=== PATIENT | male | born 1955 | race African-American/Black ===

== ENCOUNTER 2023-11-28 07:19 | Inpatient (IN) | payer MEDICARE, MEDICAID ==
[~2023-11-28] VITALS: Ht 162.6 cm; Wt 75.0 kg
[2023-11-28] MEDS: ALBUTEROL SULF 2.5 MG/0.5ML(0.5%) NEB SOLN NEB ONE (08:11)
[2023-11-28] MEDS: IPRATROPIUM BROM 0.5 MG/2.5ML INH SOL NEB ONE (08:11)
[2023-11-28 08:23] LABS: Basophils # (auto) 0.1 10 ^3/uL (0-0.2); Basophils % (auto) 0.7 % (0.0-2.0); Eosinophils # (auto) 0.2 10 ^3/uL (0-0.8); Eosinophils % (auto) 1.5 % (0.0-7.0); Hematocrit 47.7 % (41.0-53.0); Hemoglobin 15.4 g/dL (13.5-17.5); Lymphocytes # (auto) 1.8 10 ^3/uL (0.4-5.4); Lymphocytes % (auto) 15.1 % (10.0-50.0); Mean Corpuscular Hemoglobin 27.4 pg (28.0-32.0); Mean Corpuscular Hgb Conc. 32.3 g/dL (32.0-36.0); Mean Corpuscular Volume 84.7 fL (80.0-100.0); Monocytes # (auto) 0.9 10 ^3/uL (0-1.3); Monocytes % (auto) 7.6 % (0.0-12.0); Neutrophils # (auto) 9.1 10 ^3/uL (1.6-8.6); Neutrophils % (auto) 75.1 % (37.0-80.0); Nucleated Red Blood Cells % 0.3 %; Red Blood Cells 5.63 10^6/uL (4.5-5.90); Red Cell Distribution Width 15.9 % (11.8-14.3); White Blood Cell 12.1 10^3/uL (4.4-10.8)
[2023-11-28 08:32] LABS: Alanine Aminotransferase 44 U/L (7-40); Albumin 4.6 g/dL (3.2-4.8); Alkaline Phosphatase 124 U/L (46-116); Anion Gap 8 (5-15); Aspartate Aminotransferase 27 U/L (13-40); BUN/Creatinine Ratio 12.3 (10.0-20.0); Bilirubin, Total 0.5 mg/dL (0.2-1.0); Blood Urea Nitrogen 13 mg/dL (9-23); Calcium 10.1 mg/dL (8.5-10.1); Carbon Dioxide 26 mmol/L (20-30); Chloride 110 mmol/L (98-107); Glucose 85 mg/dL (74-106); Potassium 4.7 mmol/L (3.5-5.1); Sodium 144 mmol/L (136-145); Total Protein 6.5 g/dL (5.7-8.2)
[2023-11-28] MEDS: methylPREDNISolone SOD SUCC 125 MG/2 ML VL IV ONE (08:33)
[2023-11-28] MEDS: cefTRIAXone 1GM/50ML D5W 50 ML IV ONE (09:34)
[2023-11-28 10:45] VITALS: BP 156/78; PULSE 73; RESP 20; TEMP 98.1; O2SAT 98
[2023-11-28] MEDS: AZITHROMYCIN 500MG/ 250ML 250 ML IV ONE (10:45)
[2023-11-28] MEDS ORDERED: ACETAMINOPHEN 325 MG TAB PO PRN (10:45)
[2023-11-28] MEDS ORDERED: ALBUTEROL SULF 2.5 MG/0.5ML(0.5%) NEB SOLN NEB PRN (10:45)
[2023-11-28] MEDS ORDERED: AZIT500T66 PO (10:47)
[2023-11-28] MEDS ORDERED: DOXY100T2 PO (10:47)
[2023-11-28] MEDS ORDERED: APIX5TAB PO (10:47)
[2023-11-28] MEDS ORDERED: LEVO500T91 PO (10:47)
[2023-11-28] MEDS ORDERED: MEMA1TAB5 PO (10:47)
[2023-11-28] MEDS ORDERED: METH4PAK3 PO (10:47)
[2023-11-28] MEDS ORDERED: ALBU108A5 INH (10:47)
[2023-11-28] MEDS ORDERED: NICO21DI37 TOP (10:47)
[2023-11-28] MEDS ORDERED: FLUT1AER3 PO (10:47)
[2023-11-28] MEDS ORDERED: PRED20TA2 PO (10:47)
[2023-11-28] MEDS ORDERED: AMLO1TAB23 PO (10:47)
[2023-11-28] MEDS: ALBUTEROL SULF 2.5 MG/0.5ML(0.5%) NEB SOLN NEB SCH (14:52)
[2023-11-28 14:53] VITALS: PULSE 67; RESP 18; O2SAT 96
[2023-11-28] MEDS: IPRATROPIUM BROM 0.5 MG/2.5ML INH SOL NEB SCH (14:53)
[2023-11-28] MEDS: SODIUM CHLORIDE 0.9% 1,000 ML IV SCH (14:54)
[2023-11-28 14:59] VITALS: PULSE 66; RESP 18; O2SAT 100
[2023-11-28 19:45] VITALS: PULSE 81; RESP 18; O2SAT 93
[2023-11-28] MEDS: APIXABAN 5 MG TAB PO SCH (21:32)
[2023-11-28] MEDS: methylPREDNISolone SOD SUCC 40 MG/ML VL IV SCH (21:32)
[2023-11-28] MEDS: MEMANTINE HCL 5 MG TAB PO SCH (21:32)
[2023-11-28 22:19] LABS: Urine Bacteria None Seen /hpf (None Seen)
[2023-11-28 22:36] LABS: Urine Blood Negative /uL (Negative); Urine Clarity Clear (Clear); Urine Color Light-Yellow (Yellow); Urine Protein, UAD Negative (Negative); Urine Specific Gravity 1.019 (1.001-1.035); Urine Urobilinogen Normal (Negative); Urine WBC <1 /hpf (0 - 3); Urine pH 6.5 (5.0-9.0)
[2023-11-28 22:53] VITALS: PULSE 100; RESP 23; O2SAT 98
[2023-11-28 23:03] VITALS: PULSE 89; RESP 21; O2SAT 99
[2023-11-29] VITALS (18 sets, daily range): BP systolic 122–152; BP diastolic 60–81; PULSE 67–93; RESP 14–22; TEMP 97.9–99.1; O2SAT 94–100
[2023-11-29 05:05] LABS: Basophils # (auto) 0 10 ^3/uL (0-0.2); Basophils % (auto) 0.2 % (0.0-2.0); Eosinophils # (auto) 0 10 ^3/uL (0-0.8); Hematocrit 41.4 % (41.0-53.0); Hemoglobin 13.3 g/dL (13.5-17.5); Lymphocytes # (auto) 0.6 10 ^3/uL (0.4-5.4); Lymphocytes % (auto) 4.5 % (10.0-50.0); Mean Corpuscular Hgb Conc. 32.3 g/dL (32.0-36.0); Mean Corpuscular Volume 83.8 fL (80.0-100.0); Monocytes # (auto) 0.3 10 ^3/uL (0-1.3); Monocytes % (auto) 2.3 % (0.0-12.0); Neutrophils # (auto) 11.5 10 ^3/uL (1.6-8.6); Red Blood Cells 4.94 10^6/uL (4.5-5.90); Red Cell Distribution Width 15.7 % (11.8-14.3); White Blood Cell 12.4 10^3/uL (4.4-10.8)
[2023-11-29 05:20] LABS: Alanine Aminotransferase 32 U/L (7-40); Albumin 3.9 g/dL (3.2-4.8); Alkaline Phosphatase 102 U/L (46-116); Anion Gap 6 (5-15); Aspartate Aminotransferase 14 U/L (13-40); BUN/Creatinine Ratio 15.4 (10.0-20.0); Bilirubin, Total 0.4 mg/dL (0.2-1.0); Blood Urea Nitrogen 16 mg/dL (9-23); Calcium 9.3 mg/dL (8.7-10.4); Carbon Dioxide 24 mmol/L (20-30); Chloride 110 mmol/L (98-107); Glucose 168 mg/dL (74-106); Potassium 4.1 mmol/L (3.5-5.1); Sodium 140 mmol/L (136-145); Total Protein 5.9 g/dL (5.7-8.2)
[2023-11-29] MEDS: cefTRIAXone 1GM/50ML D5W 50 ML IV SCH (09:27)
[2023-11-29] MEDS ORDERED: ENOXAPARIN SOD 40 MG/0.4 ML SYRINGE SC SCH (10:00)
[2023-11-29] MEDS: AZITHROMYCIN 500MG/ 250ML 250 ML IV SCH (10:08)
[2023-11-29] MEDS: NICOTINE 21MG/24 HR TOPICAL PATCH TD SCH (10:09)
[2023-11-29] MEDS: amLODIPine BESYLATE 5 MG TAB PO SCH (10:10)
[2023-11-29] MEDS ORDERED: PANT40TA2 PO (13:42)
[2023-11-29] MEDS ORDERED: PRED20TA2 PO (13:42)
== END 2023-11-29 16:20 | disposition home or self-care (01) | DRG 190 ==
LOC: EDBD 07:19 → ER 07:19 → OVERFLOW 10:46 → WEST WING 22:16
PROVIDERS: ADMIT Nurse Practitioner Family; ATTEND Nurse Practitioner Family
DX: J44.1 Chronic obstructive pulmonary disease with (acute) exacerbation (principal); J96.01 Acute respiratory failure with hypoxia; F17.210 Nicotine dependence, cigarettes, uncomplicated; J98.4 Other disorders of lung; R74.01 Elevation of levels of liver transaminase levels; I48.91 Unspecified atrial fibrillation; F03.90 Unspecified dementia, unspecified severity, without behavioral disturbance, psychotic disturbance, mood disturbance, and anxiety
CPT/HCPCS: 36415; 71045; 76705; 80053; 81001; 83880; 84484; 85025; 93005; 94640; G0378

== ENCOUNTER 2025-01-25 18:28 | Inpatient (IN) | payer OTHER, MEDICAID ==
[~2025-01-25] VITALS: Ht 165.1 cm; Wt 62.5 kg
[~2025-01-25 18:28] MED LIST: ALBU108A5 INH; AMLO1TAB23 PO; APIX5TAB PO; AZIT500T66 PO; DOXY100T2 PO; FLUT1AER3 PO; LEVO500T91 PO; MEMA1TAB5 PO; METH4PAK3 PO; NICO21DI37 TOP; PANT40TA2 PO; PRED20TA2 PO
[2025-01-25] MEDS: MAGNESIUM SULFATE 1GM/100ML 100 ML IV SCH (18:30)
[2025-01-25] MEDS: IPRATROPIUM BROM 0.5 MG/2.5ML INH SOL ONE (18:32)
[2025-01-25] MEDS: ALBUTEROL SULF 2.5 MG/0.5ML(0.5%) NEB SOLN ONE (18:32)
--- NOTE | 2025-01-25 18:34 | ED.PDOC ---
SOB-HPI HPI Comments 69 y/o M is BIBA for c/o SOB. Symptom began today, suddenly and unprovoked, with no relief or improvement with at-home prescription Albuterol inhaler use. Per EMS report, patient was found on scene tripoding and diaphoretic and was given breathing treatment nebulizer, first, and then placed on CPAP before showing improvement. Patient has a history of AFib, acute hypoxic respiratory failure, asthma, COPD, tobacco abuse, and dementia. He denies having any chest pain, cough, congestion, fever, chills, or further associated symptoms. Time Seen by MD: 18:30 Reviewed notes: Nurses Notes, Shipping Manager Notes, Medications, Allergies Information Source: Emergency Med Personnel Mode of Arrival: EMS Severity: Moderate Timing: Hours Duration: Since onset Context: At Rest, Spontaneous Onset PE Risk Factors: None History of: Asthma, COPD Prehospital treatment: 12 Lead EKG, Breathing Tx, [employer], C-Pap Associated Signs and Symptoms: None Past Medical History PAST MEDICAL HISTORY: AFIB, Asthma, COPD, Dementia Past Medical History (Other): Acute hypoxic respiratory failure Surgical History: Denies all surgeries Family History Family History: Unknown Social History Smoker: Cigarettes Alcohol: Denies ETOH Use Drugs: Denies Drug Use Lives In: Home Constitutional: denies: chills, diaphoresis, fatigue, fever, malaise, sweats, weakness, others EENTM: denies: blurred vision, double vision, ear bleeding, ear discharge, ear drainage, ear pain, ear ringing, eye pain, eye redness, hearing loss, mouth pain, mouth swelling, nasal discharge, nose bleeding, nose congestion, nose pain, photophobia, tearing, throat pain, throat swelling, voice changes, others Respiratory: reports: cough, SOB at rest, shortness of breath, SOB with excertion; denies: hemoptysis, orthopnea, stridor, wheezing, others Cardiovascular: denies: chest pain, dizzy spells, diaphoresis, Dyspnea on exertion, edema, irregular heart beat, left arm pain, lightheadedness, palpitations, PND, syncope, others Gastrointestinal: denies: abdomen distended, abdominal pain, blood streaked bowels, constipated, diarrhea, dysphagia, difficulty swallowing, hematemesis, melena, nausea, poor appetite, poor fluid intake, rectal bleeding, rectal pain, vomiting, others Genitourinary: denies: burning, dysuria, flank pain, frequency, hematuria, incontinence, penile discharge, penile sore, pain, testicle pain, testicle swelling, urgency, others Neurological: denies: dizziness, fainting, headache, left sided numbness, left sided weakness, numbness, paresthesia, pre-existing deficit, right sided numbness, right sided weakness, seizure, speech problems, tingling, tremors, weakness, others Musculoskeletal: denies: back pain, gout, joint pain, joint swelling, muscle pain, muscle stiffness, neck pain, others Integumetry: denies: bruises, change in color, change in hair/nails, dryness, laceration, lesions, lumps, rash, wounds, others Allergic/Immunocompromised: denies: Difficulty Healing, Frequent Infections, Hives, Itching, others Hematologic/Lymphatic: denies: anemia, blood clots, easy bleeding, easy bruising, swollen glands, others All Other Systems: Reviewed and Negative (Comprehensive systems review obtained and negative except for what is stated in the HPI.) Physical Exam General Appearance: No Apparent Distress, Normal HEENT: Normal ENT Inspection, Pharynx Normal, TMs Normal Neck: Full Range of Motion, Non-Tender, Normal, Normal Inspection Respiratory: Chest Non-Tender, No Accessory Muscle Use, No Respiratory Distre ss, Wheezing (in all lung chavez), Other (Tachypneic) Cardiovascular: No Edema, No JVD, No Murmur, No Gallop, Normal Peripheral Pulses, Regular Rate/Rhythm Breast Exam: Deferred Gastrointestinal: No Organomegaly, Non Tender, No Pulsatile Mass, Normal Bowel Sounds, Soft Genitalia: Deferred Pelvic: Deferred Rectal: Deferred Extremities: No calf tenderness, Normal capillary refill, Normal inspection, Normal range of motion, Non-tender, No pedal edema Musculoskeletal : Apperance: Normal Neurologic: Alert, molder punch II-XII nml as Tested, No Motor Deficits, Normal Affect, Normal Mood, No Sensory Deficits Cerebellar Function: Normal Reflexes: Normal Skin: Dry, Normal Color, Warm Lymphatic: No Adenopathy Was a procedure done? Was a procedure done?: No Differential Dx Differential Diagnosis: Anxiety, Asthma, Bronchitis, COPD, Hyperventilation, Myocardial infarction, Panic Attack, Pneumonia, Pulmonary Embolism, Respiratory Distress, URI X-Ray, Labs, Meds, VS Vital Signs Date Time Temp Pulse Resp B/P (MAP) Pulse Ox O2 Delivery O2 Flow Rate FiO2 01/25/25 20:00 79 01/25/25 19:58 100 Nasal Cannula* 2 28 01/25/25 19:46 79 18 100 Bi-Pap+ 35 35 01/25/25 19:45 98.5 79 18 117/78 (91) 100 98.5 01/25/25 19:24 99 Bi-Pap+ 35 35 01/25/25 18:38 101 22 99 Bi-Pap+ 35 35 01/25/25 18:38 101 22 174/96 (122) 99 01/25/25 18:29 102 01/25/25 18:29 97 174/96 Facial BiPAP Mask 35 01/25/25 18:28 97.8 102 20 174/96 (122) 99 97.8 Lab Test 01/25/25 19:33 01/25/25 18:41 Range/Units Blood Gas Specimen Type Arterial Blood Gas Sample Site Left radial Blood Gas Patient Temperature 37.0 Arterial Blood Date Drawn [id number] Arterial Blood pH 7.391 7.350-7.450 Arterial Blood Partial Pressure CO2 42.2 35.0-48.0 mmHg Arterial Blood Partial Pressure O2 109.3 H 83.0-108.0 mmHg Arterial Blood HCO3 25.0 21.0-28.0 mmol/L Arterial Blood Oxygen Saturation 98.1 H 94.0-98.0 % Arterial Blood Base Excess 0.0 -2.0-3.0 mmol/L Arterial Blood Oxyhemoglobin 96.7 94.0-98.0 % Arterial Blood Carboxyhemoglobin 0.6 0.5-1.5 % Arterial Blood Methemoglobin 0.8 0.0-1.5 % Guille Test Modified Blood Gas Total Hemoglobin 12.70 L 13.5-17.5 g/dL Blood Gas Set Respiration Rate 14.0 Blood Gas Modality Mask - bipap FiO2 % 35.0 Blood Gas EPAP 5 Blood Gas IPAP 14 White Blood Count 10.0 4.4-10.8 10^3/uL Red Blood Count 4.78 4.5-5.90 10^6/uL Hemoglobin 12.5 L 13.5-17.5 g/dL Hematocrit 38.3 L 41.0-53.0 % Mean Corpuscular Volume 80.2 80.0-100.0 fL Mean Corpuscular Hemoglobin 26.1 L 28.0-32.0 pg Mean Corpuscular Hemoglobin Concent 32.5 32.0-36.0 g/dL Red Cell Distribution Width 16.4 H 11.8-14.3 % Platelet Count 315 140-450 10^3/uL Mean Platelet Volume 7.6 6.9-10.8 fL Neutrophils (%) (Auto) 62.0 37.0-80.0 % Lymphocytes (%) (Auto) 16.0 10.0-50.0 % Monocytes (%) (Auto) 9.6 0.0-12.0 % Eosinophils (%) (Auto) 11.6 H 0.0-7.0 % Basophils (%) (Auto) 0.8 0.0-2.0 % Neutrophils # (Auto) 6.2 1.6-8.6 10 ^3/uL Lymphocytes # (Auto) 1.6 0.4-5.4 10 ^3/uL Monocytes # (Auto) 1.0 0-1.3 10 ^3/uL Eosinophils # (Auto) 1.2 H 0-0.8 10 ^3/uL Basophils # (Auto) 0.1 0-0.2 10 ^3/uL Nucleated Red Blood Cells 0.1 % Sodium Level 148 H 136-145 mmol/L Potassium Level 3.7 3.5-5.1 mmol/L Chloride Level 113 H 98-107 mmol/L Carbon Dioxide Level 25 20-31 mmol/L Anion Gap 10 5-15 Blood Urea Nitrogen 10 9-23 mg/dL Creatinine 0.93 0.700-1.30 mg/dL Glomerular Filtration Rate Calc 89 >90 mL/min BUN/Creatinine Ratio 10.8 10.0-20.0 Serum Glucose 105 74-106 mg/dL Calcium Level 9.4 8.7-10.4 mg/dL Magnesium Level 2.0 1.6-2.6 mg/dL B-Type Natriuretic Peptide 28.06 0-100 pg/mL Current Medications Medications (Trade) Dose Ordered Sig/Baltazar Route Start Time Stop Time Status Last Admin Albuterol (Ventolin Medneb) 2.5 mg ONCE ONCE NEB 01/25/25 18:30 01/25/25 18:34 DC 01/25/25 18:42 Ipratropium [place] (Atrovent Medneb) 0.5 mg ONCE ONCE NEB 01/25/25 18:30 01/25/25 18:34 DC 01/25/25 18:43 Methylprednisolone Sodium Succinate (Solu Medrol) 125 mg ONCE ONCE IM 01/25/25 18:30 01/25/25 18:34 DC 01/25/25 18:46 X-Ray, Labs, Meds, VS Comment Patient will be admitted for COPD exacerbation Patient is on 2 L nasal cannula to maintain good oxygenation Patient will be administered DuoNeb breathing treatments as needed Time of 1ST Reevaluation: 19:00 Reevaluation 1ST: Improved Patient Education/Counseling: Diagnosis, Treatment Family Education/Counseling: No Family Present Additional Information Previous visits reviewed: November 28, 2023 for asthma exacerbation The following tests were ordered, and results were reviewed by me: EKG, UA, BNP, BMP, CBC, CXR Additional Information was gathered from interviewing the following independent historians: EMS I reviewed and agreed with the following test results read by other providers: CXR I discussed treatment and results with medical personnel and: patient SEPSIS Sepsis Screen Orders/Vitals/Labs Physician Orders Urinalysis (01/25/25 18:30) Chest Xray 1 View (01/25/25 18:30) Magnesium Sulfate 1gm/100ml (01/25/25 18:30) Electrocardigram (01/25/25 18:34) BIPAP (01/25/25 18:41) Abg W/ Co-Ox (01/25/25 19:45) Vital Signs Date Time Temp Pulse Resp B/P (MAP) Pulse Ox O2 Delivery O2 Flow Rate FiO2 01/25/25 20:00 79 01/25/25 19:58 100 Nasal Cannula* 2 28 01/25/25 19:46 79 18 100 Bi-Pap+ 35 35 01/25/25 19:45 98.5 79 18 117/78 (91) 100 98.5 01/25/25 19:24 99 Bi-Pap+ 35 35 01/25/25 18:38 101 22 99 Bi-Pap+ 35 35 01/25/25 18:38 101 22 174/96 (122) 99 01/25/25 18:29 102 01/25/25 18:29 97 174/96 Facial BiPAP Mask 35 01/25/25 18:28 97.8 102 20 174/96 (122) 99 97.8 Laboratory Tests Test 01/25/25 18:41 White Blood Count 10.0 10^3/uL (4.4-10.8) Medications Medications Dose Ordered Sig/Baltazar Route Start Time Stop Time Status Last Admin Dose Admin Albuterol 2.5 mg ONCE ONCE NEB 01/25/25 18:30 01/25/25 18:34 DC 01/25/25 18:42 Ipratropium [place] 0.5 mg ONCE ONCE NEB 01/25/25 18:30 01/25/25 18:34 DC 01/25/25 18:43 Methylprednisolone Sodium Succinate 125 mg ONCE ONCE IM 01/25/25 18:30 01/25/25 18:34 DC 01/25/25 18:46 Departure 1 Departure Time of Disposition: 21:13 Impression: Primary Impression: COPD exacerbation Additional Impression: Acute respiratory failure Qualified Codes: J96.01 - Acute respiratory failure with hypoxia Disposition: ADMITTED INPATIENT Condition: Stable Discharged With: Self Critical Care Note Critical Care Time?: No Stability Stability form required: No Heart Score Heart Score: Heart Score Response (Comments) Value History N/A 0 EKG N/A 0 Age N/A 0 Risk Factors N/A 0 Troponin N/A 0 Total 0 I personally scribed for JUNIOR ISRAEL ([email or web address]) on 01/25/25 at 18:34. Electronically submitted by Doc Phillip ([email or web address]). I personally scribed for JUNIOR ISRAEL ([email or web address]) on 01/25/25 at 18:42. Electronically submitted by Doc Phillip ([email or web address]). JUNIOR ISRAEL Jan 25, 2025 18:34
[2025-01-25 18:38] VITALS: PULSE 101; RESP 22; O2SAT 99
[2025-01-25] MEDS: ALBUTEROL SULF 2.5 MG/0.5ML(0.5%) NEB SOLN NEB ONE (18:42)
[2025-01-25] MEDS: IPRATROPIUM BROM 0.5 MG/2.5ML INH SOL NEB ONE (18:43)
[2025-01-25] MEDS: methylPREDNISolone SOD SUCC 125 MG/2 ML VL IM ONE (18:46)
[2025-01-25 18:58] LABS: Basophils # (auto) 0.1 10 ^3/uL (0-0.2); Hemoglobin 12.5 g/dL (13.5-17.5); Lymphocytes # (auto) 1.6 10 ^3/uL (0.4-5.4); Mean Corpuscular Hgb Conc. 32.5 g/dL (32.0-36.0)
[2025-01-25 19:00] LABS: Basophils % (auto) 0.8 % (0.0-2.0); Eosinophils # (auto) 1.2 10 ^3/uL (0-0.8); Eosinophils % (auto) 11.6 % (0.0-7.0); Hematocrit 38.3 % (41.0-53.0); Mean Corpuscular Hemoglobin 26.1 pg (28.0-32.0); Mean Corpuscular Volume 80.2 fL (80.0-100.0); Monocytes % (auto) 9.6 % (0.0-12.0); Neutrophils # (auto) 6.2 10 ^3/uL (1.6-8.6); Nucleated Red Blood Cells % 0.1 %; Platelet Count (auto) 315 10^3/uL (140-450); Red Blood Cells 4.78 10^6/uL (4.5-5.90); Red Cell Distribution Width 16.4 % (11.8-14.3)
[2025-01-25 19:04] LABS: Potassium 3.7 mmol/L (3.5-5.1)
[2025-01-25 19:05] LABS: Anion Gap 10 (5-15); Carbon Dioxide 25 mmol/L (20-31)
[2025-01-25 19:06] LABS: Calcium 9.4 mg/dL (8.7-10.4)
[2025-01-25 19:10] LABS: BUN/Creatinine Ratio 10.8 (10.0-20.0); Blood Urea Nitrogen 10 mg/dL (9-23); Glucose 105 mg/dL (74-106)
[2025-01-25 19:20] LABS: Chloride 113 mmol/L (98-107); Sodium 148 mmol/L (136-145)
[2025-01-25 19:30] VITALS: BP 117/78; PULSE 79; RESP 18; TEMP 98.5; O2SAT 100
--- NOTE | 2025-01-25 19:31 | DVH ---
CHEST RADIOGRAPH Indication: sob Technique: Single frontal view of the chest was obtained Comparison: XY CHEST PORTABLE on DOS: 11/28/23 FINDINGS: Lines and Tubes: None Lungs: No focal consolidation. Pleura: No effusion. No pneumothorax. Cardiomediastinal contours: Unremarkable Bones: No acute osseous abnormality. IMPRESSION: 1. No acute cardiopulmonary disease. HS:Y
[2025-01-25 19:46] VITALS: PULSE 79; RESP 18; O2SAT 100
[2025-01-25] MEDS ORDERED: DOCUSATE SOD 100 MG CAP PO PRN (21:30)
[2025-01-25] MEDS ORDERED: MORPHINE SULFATE INJ 2 MG/ml SYRG IV PRN ×2 (21:30)
[2025-01-25] MEDS ORDERED: ACETAMINOPHEN 325 MG TAB PO PRN (21:30)
[2025-01-25] MEDS ORDERED: ONDANSETRON HCL 4 MG/2 ML VIAL IV PRN (21:30)
[2025-01-25] MEDS ORDERED: NITROGLYCERIN 0.4 MG SL TAB SL PRN (21:30)
[2025-01-25] MEDS ORDERED: hydrALAZINE HCL 20 MG/ML VL IV PRN (21:45)
[2025-01-25] MEDS: LACTATED RINGER'S 1,000 ML IV ONE (21:45)
[2025-01-25] MEDS: ENOXAPARIN SOD 100 MG/1 ML SYRINGE SC SCH (22:00)
[2025-01-25 22:08] VITALS: PULSE 78; RESP 18; O2SAT 99
[2025-01-25] MEDS: LEVALBUTEROL HCL 1.25 MG/3 ML NEB NEB SCH (22:08)
[2025-01-25] MEDS: IPRATROPIUM BROM 0.5 MG/2.5ML INH SOL NEB SCH (22:08)
[2025-01-25 22:12] LABS: Alanine Aminotransferase 18 U/L (7-40); Albumin 4.2 g/dL (3.2-4.8); Aspartate Aminotransferase 19 U/L (<34); Bilirubin, Total 0.3 mg/dL (0.2-1.0); Total Protein 6.4 g/dL (5.7-8.2)
[2025-01-25 22:16] LABS: Alkaline Phosphatase 152 U/L (46-116); Bilirubin, Direct < 0.1 mg/dL (<0.3); Blood Alcohol < 3.0 mg/dL (<10)
[2025-01-25 22:18] VITALS: PULSE 83; RESP 23; O2SAT 98
--- NOTE | 2025-01-25 22:26 | DVHHPRES ---
History of Present Illness Resident Creating Document: AYANNA JERNIGAN RESIDENT History of Present Illness Mr. Jose, 69-year-old male with a medical history of atrial fibrillation (AFib), asthma, chronic obstructive pulmonary disease (COPD), dementia, tobacco use, and prior acute hypoxic respiratory failure presented via EMS with sudden- onset shortness of breath (SOB) that began earlier today without any clear trigger. His symptoms did not improve with his home Albuterol inhaler. EMS found him in respiratory distresstripoding and diaphoreticand administered a nebulized breathing treatment followed by CPAP, which led to improvement. He denied chest pain, cough, fever, chills, or other associated symptoms. Prehospital care included a 12-lead EKG, cardiac monitoring, and respiratory support. The severity of his condition was assessed as moderate. PCP Dr. Zee. Previous hospitalizations in 2023 with similar COPD exacerbation, was treated conservatively on discharged home with antibiotics and oral steroids. Past Medical History atrial fibrillation (AFib), asthma, chronic obstructive pulmonary disease (COPD), dementia, tobacco use, and prior acute hypoxic respiratory failure Past Surgical History: None Family History: None, Hypertension, Other (Noncontributory) Smoke: # pack years (50+ pack years) ALCOHOL: occassional Drugs: None Lives: with Family Domestic Violence: Neg Review of Systems Constitutional: Yes: Weakness, Malaise; No: Fever, Chills, Sweats, Other Eyes: No: Pain, Vision change, Conjunctivae inflammation, Eyelid inflammation, Other, Redness ENT: No: Ear pain, Ear discharge, Nose pain, Nose discharge, Nose congestion, Mouth pain, Mouth swelling, Throat pain, Throat swelling, Other Respiratory: Cough, Dry, Shortness of breath, Wheezing; No: SOB with excertion, Hemoptysis, Pleuritic Pain, Sputum, Wheezing, Other Cardiovascular: No: Chest Pain, Palpitations, Orthopnea, Paroxysmal Noc. Dyspnea, Edema, Lt Headedness, Other Gastrointestinal: No: Nausea, Vomiting, Abdominal Pain, Diarrhea, Constipation, Melena, Hematochezia, Other Genitourinary: No Dysuria, No Frequency, No Incontinence, No Hematuria, No Retention, No Other Musculoskeletal: No: other, neck pain, shoulder pain, arm pain, back pain, hand pain, leg pain, foot pain Skin: No: Rash, Lesions, Jaundice, Bruising, Other Neurological: No: Weakness, Numbness, Incoordination, Change in speech, Confusion, Seizures, Other Allergies: Coded Allergies: NO KNOWN ALLERGIES (Unverified , 11/28/23) per patient Medications Current Medications Medications Dose Ordered Sig/Baltazar Route Start Time Stop Time Status Last Admin Dose Admin Ondansetron HCl 4 mg Q4HP PRN IV 01/25/25 21:30 Docusate Sodium 100 mg BIDPRN PRN PO 01/25/25 21:30 Acetaminophen 650 mg Q6HP PRN PO 01/25/25 21:30 Morphine Sulfate 2 mg Q4HPRN PRN IV 01/25/25 21:30 Nitroglycerin 0.4 mg Q5MINP PRN SL 01/25/25 21:30 Morphine Sulfate 2 mg Q30M PRN IV 01/25/25 21:30 Amlodipine Besylate 10 mg DAILY PO 01/26/25 10:00 Hydralazine HCl 10 mg Q6HP PRN IV 01/25/25 21:45 Levalbuterol HCl 1.25 mg Q6HWA NEB 01/25/25 21:45 01/25/25 22:08 1.25 MG Ipratropium [employer] 0.5 mg Q6HWA NEB 01/25/25 21:45 01/25/25 22:08 0.5 MG Pantoprazole Sodium 40 mg DAILY IV 01/26/25 10:00 UNV Enoxaparin Sodium 60 mg Q12HR SC 01/25/25 22:00 UNV Exam Vital Signs Vital Signs Date Time Temp Pulse Resp B/P (MAP) Pulse Ox O2 Delivery O2 Flow Rate FiO2 01/25/25 20:00 79 01/25/25 19:58 100 Nasal Cannula* 2 28 01/25/25 19:46 18 01/25/25 19:45 98.5 117/78 (91) 98.5 General Appearance: Alert, Oriented X3, Cooperative, No acute distress, moderate distress HEENT: Atraumatic, PERRLA, EOMI Respiratory: Other (2 L of nasal cannula oxygen, wheezing resolved with breathing treatment, slow air movement, basal rales, crackles right lower chest) Cardiovascular: Regular rate, Normal S1, Normal S2, No murmurs, Other (On telemetry) Abdominal: Normal bowel sounds, Soft, No tenderness, No hepatospenomegaly, No masses Extremities: No clubbing, No cyanosis, No edema, Normal pulses, No tenderness/swelling Skin: No rashes, No breakdown, No significant lesion Neuro: Normal gait, Normal speech, Strength at 5/5 X4 ext, Normal tone, Sensation intact, Cranial nerves 3-12 NL, Reflexes 2+, Other Psych/Mental Status: Mental status NL, Mood NL Labs/Xrays Labs Test 01/25/25 19:33 01/25/25 18:41 Range/Units Blood Gas Specimen Type Arterial Blood Gas Sample Site Left radial Blood Gas Patient Temperature 37.0 Arterial Blood Date Drawn [id number] Arterial Blood pH 7.391 7.350-7.450 Arterial Blood Partial Pressure CO2 42.2 35.0-48.0 mmHg Arterial Blood Partial Pressure O2 109.3 H 83.0-108.0 mmHg Arterial Blood HCO3 25.0 21.0-28.0 mmol/L Arterial Blood Oxygen Saturation 98.1 H 94.0-98.0 % Arterial Blood Base Excess 0.0 -2.0-3.0 mmol/L Arterial Blood Oxyhemoglobin 96.7 94.0-98.0 % Arterial Blood Carboxyhemoglobin 0.6 0.5-1.5 % Arterial Blood Methemoglobin 0.8 0.0-1.5 % Guille Test Modified Blood Gas Total Hemoglobin 12.70 L 13.5-17.5 g/dL Blood Gas Set Respiration Rate 14.0 Blood Gas Modality Mask - bipap FiO2 % 35.0 Blood Gas EPAP 5 Blood Gas IPAP 14 White Blood Count 10.0 4.4-10.8 10^3/uL Red Blood Count 4.78 4.5-5.90 10^6/uL Hemoglobin 12.5 L 13.5-17.5 g/dL Hematocrit 38.3 L 41.0-53.0 % Mean Corpuscular Volume 80.2 80.0-100.0 fL Mean Corpuscular Hemoglobin 26.1 L 28.0-32.0 pg Mean Corpuscular Hemoglobin Concent 32.5 32.0-36.0 g/dL Red Cell Distribution Width 16.4 H 11.8-14.3 % Platelet Count 315 140-450 10^3/uL Mean Platelet Volume 7.6 6.9-10.8 fL Neutrophils (%) (Auto) 62.0 37.0-80.0 % Lymphocytes (%) (Auto) 16.0 10.0-50.0 % Monocytes (%) (Auto) 9.6 0.0-12.0 % Eosinophils (%) (Auto) 11.6 H 0.0-7.0 % Basophils (%) (Auto) 0.8 0.0-2.0 % Neutrophils # (Auto) 6.2 1.6-8.6 10 ^3/uL Lymphocytes # (Auto) 1.6 0.4-5.4 10 ^3/uL Monocytes # (Auto) 1.0 0-1.3 10 ^3/uL Eosinophils # (Auto) 1.2 H 0-0.8 10 ^3/uL Basophils # (Auto) 0.1 0-0.2 10 ^3/uL Nucleated Red Blood Cells 0.1 % Sodium Level 148 H 136-145 mmol/L Potassium Level 3.7 3.5-5.1 mmol/L Chloride Level 113 H 98-107 mmol/L Carbon Dioxide Level 25 20-31 mmol/L Anion Gap 10 5-15 Blood Urea Nitrogen 10 9-23 mg/dL Creatinine 0.93 0.700-1.30 mg/dL Glomerular Filtration Rate Calc 89 >90 mL/min BUN/Creatinine Ratio 10.8 10.0-20.0 Serum Glucose 105 74-106 mg/dL Calcium Level 9.4 8.7-10.4 mg/dL Magnesium Level 2.0 1.6-2.6 mg/dL B-Type Natriuretic Peptide 28.06 0-100 pg/mL Assessment/Plan Assessment/Plan #COPD exacerbation: Status post IV steroid, nebs, inpatient admission, rule out underlying trigger, we will keep on levalbuterol and ipratropium given tachycardia. Needing NIPPV on the way. ABG satisfactory. #known COPD: Possible emphysematous changes. No focal consolidation. noted in 11/27 CXR, consistent with today's CXR, likely due to smoking. #?CAD : Not well documented, Aspirin 81 daily, indication not clear, we will check for ASCVD score for further continuing given new anemia. Dyslipidemia check with lipid panel. EKG and troponin trend. #Essential hypertension, amlodipine 10 mg daily, hydralazine till starts PO interneurons Uncontrolled, presented with 174/96, cardiac diet with 2 g salt restriction with target BP 140/90 or below. #Complete workup with UA, tox screen, blood alcohol, COVID and rapid influenza, sputum culture, blood culture, TSH, EKG, troponin, CMP, echo, BNP & Lactate. Follow up labs. #normocytic anemia, 12.5, baseline around 15, CBC trend, stool occult blood, rule out secondary causes, transfusion threshold 7. #Aspiration pneumonia versus community-acquired pneumonia Gram-positive/Gram-negative: Right lower lobe, Concerning. Empiric coverage with IV ceftriaxone and azithromycin. #sepsis due to above: Trend CBC, SIRS criteria met with heart rate >90 and respiratory rate >20, gentle hydration. #acute hypoxic respiratory failure likely due to above, baseline no oxygen, now 2 L of nasal cannula oxygen, wean as tolerated to keep SpO2 around 92%. #history of previously acute hypoxic/ hypercapnic respiratory failure needing BiPAP support. #history of cholelithiasis without cholecystitis, abdominal examination unremarkable, denies any GI symptoms. #previous history of ? Pneumonitis: Could be due to aspiration, IV pantoprazole to continue. we will keep the patient NPO in anticipation if patient needs an NIPPV, we will consider ABG if respiratory symptoms worsens. #?Dementia: AAO x4, delirium precaution, aspiration precautions to continue. #Atrial fibrillation : At home Eliquis, continue on telemetry, heart rate target is less than 110 as per RACE II trial. #Asthma: History undetermined, no history of childhood clear likely COPD is the underlying issue itself. #Active nicotine abuse: Lives in the pack-year day, over 50 pack-year smoking history: 11 minutes smoking cessation counseling, as needed nicotine patch #Prior history of transaminitis: Avoid hepatotoxic, repeat CMP, previous liver ultrasound unremarkable. #Advanced age multiple comorbidities, when patient is respiratory and hemodynamically better, we will consider physical therapy for safe discharge to home. PCP: Dr. Zee Specialist Relevant To Admission: Pulmonology, can follow up outpatient. Case discussed with Dr. Pittman. Code Status: Full Code. Goals of care discussion needed total 33 minutes bedside. Plan discussed with: Patient My Orders Orders - AYANNA JERNIGAN RESIDENT Procedure Category Date Status Time Admit ADMIT 01/25/25 Transmitted 21:25 Allergies DONG 01/25/25 In Process 21:25 Code Status CODE 01/25/25 Transmitted 21:25 Oxygen Per Hour RT 01/25/25 Transmitted 21:25 Ondansetron Hcl PHA 01/25/25 In Process (Zofran) 21:30 Docusate Sodium PHA 01/25/25 In Process Capsule (Colace 21:30 Fall Risk Precautions DONG 01/25/[address] 21:25 Complete Blood Count LAB 01/26/25 Verified 04:00 Comprehensive LAB 01/26/25 Verified Metabolic Panel 04:00 Npo (Nothing By DIET 01/26/25 Transmitted Mouth) Diet Breakfast Pt Request For Service PT 01/25/25 Logged 21:25 Echo 2d Mode Cardiac US 01/25/25 Logged DOP 21:25 Condition: Serious DONG 01/25/25 In Process 21:25 Acetaminophen Tablet PHA 01/25/25 In Process (Tylenol Tablet) 21:30 Morphine Sulfate PHA 01/25/25 In Process Injection 21:30 Nitroglycerin PHA 01/25/25 In Process Sublingual (Ntrostat 21:30 Morphine Sulfate PHA 01/25/25 In Process Injection 21:30 Oxygen By Nasal RT 01/25/25 Transmitted Cannula 21:25 Stat Ekg For Chest DONG 01/25/25 In Process Pain 21:25 Notify Md Of Changes DONG 01/25/25 In Process From Base 21:25 Facility Technician For DONG 01/25/25 In Process 24 Hours 21:25 Emergency Dysrhythmia DONG 01/25/25 In Process Protocol 21:25 Rhythm Strips Once DONG 01/25/25 In Process Every Shift 21:25 Amlodipine Tablet PHA 01/26/25 In Process (Norvasc Tablet) 10:00 Hydralazine Injection PHA 01/25/25 In Process (Apresoline Inject 21:45 Urinalysis LAB 01/25/25 Logged 21:40 Drug Screen LAB 01/25/25 Logged 21:40 Urine Ethanol LAB 01/25/25 In Process 21:40 Covid19 Antigen [place] LAB 01/25/25 Logged Rapid Influenza A&B LAB 01/25/25 Logged 21:40 Respiratory Culture GABRIELLE 01/25/25 Logged W/ Gs 21:40 Blood Culture GABRIELLE 01/25/25 Logged 21:40 Thyroid Stimulating LAB 01/25/25 In Process Hormone 21:40 Ekg On Admit DONG 01/25/25 In Process 21:40 Troponin-I Hs LAB 01/25/25 In Process 21:40 Troponin-I Hs LAB 01/25/25 Logged 22:40 Troponin-I Hs LAB 01/26/25 Verified 00:40 Hepatic Panel LAB 01/25/25 In Process 21:40 Levalbuterol Hcl PHA 01/25/25 In Process (Xopenex Medneb) 21:45 Ipratropium Medneb PHA 01/25/25 In Process (Atrovent Medneb) 21:45 Lactated Ringer's PHA 01/25/25 In Process 21:45 Lactic Acid W/ Reflex LAB 01/25/25 Logged Order 21:40 Fall Precautions DONG 01/25/25 In Process Initiated 21:52 Strict Aspiration DONG 01/25/25 In Process Precautions 21:52 Pantoprazole PHA 01/26/25 Logged (Protonix) 10:00 Enoxaparin Sodium PHA 01/25/25 Logged (Lovenox) 22:00 Date of Service: Jan 25, 2025 Billing Provider: MARIAM PITTMAN MD Common Visit Codes: [id number] INP/OBS CARE (HIGH) Secondary Visit Codes: 82031-[id number] CARE PLAN 30 MINUTES AYANNA JERNIGAN RESIDENT Jan 25, 2025 22:26
[2025-01-26] VITALS (15 sets, daily range): BP systolic 115–139; BP diastolic 70–89; PULSE 78–99; RESP 16–20; TEMP 97.6–98.6; O2SAT 93–100
[2025-01-26 04:27] LABS: Basophils # (auto) 0 10 ^3/uL (0-0.2); Basophils % (auto) 0.4 % (0.0-2.0); Eosinophils # (auto) 0 10 ^3/uL (0-0.8); Hematocrit 39.7 % (41.0-53.0); Hemoglobin 12.9 g/dL (13.5-17.5); Lymphocytes # (auto) 0.5 10 ^3/uL (0.4-5.4); Lymphocytes % (auto) 6.4 % (10.0-50.0); Mean Corpuscular Hemoglobin 25.9 pg (28.0-32.0); Mean Corpuscular Hgb Conc. 32.4 g/dL (32.0-36.0); Monocytes # (auto) 0 10 ^3/uL (0-1.3); Monocytes % (auto) 0.4 % (0.0-12.0); Neutrophils # (auto) 7.5 10 ^3/uL (1.6-8.6); Neutrophils % (auto) 92.8 % (37.0-80.0); Nucleated Red Blood Cells % 0.1 %; Platelet Count (auto) 301 10^3/uL (140-450); Red Blood Cells 4.97 10^6/uL (4.5-5.90); Red Cell Distribution Width 16.4 % (11.8-14.3); White Blood Cell 8.1 10^3/uL (4.4-10.8)
[2025-01-26 04:45] LABS: Urine Bacteria None Seen /hpf (None Seen)
[2025-01-26 04:46] LABS: Alanine Aminotransferase 18 U/L (7-40); Albumin 4.3 g/dL (3.2-4.8); Anion Gap 9 (5-15); Aspartate Aminotransferase 19 U/L (<34); BUN/Creatinine Ratio 9.5 (10.0-20.0); Blood Urea Nitrogen 10 mg/dL (9-23); Calcium 10.1 mg/dL (8.7-10.4); Carbon Dioxide 26 mmol/L (20-31); Potassium 4.4 mmol/L (3.5-5.1); Sodium 144 mmol/L (136-145); Total Protein 6.9 g/dL (5.7-8.2)
[2025-01-26 04:47] LABS: Alkaline Phosphatase 155 U/L (46-116); Bilirubin, Total 0.4 mg/dL (0.2-1.0); Chloride 109 mmol/L (98-107); Glucose 200 mg/dL (74-106)
[2025-01-26 04:56] LABS: Urine Blood Negative /uL (Negative); Urine Clarity Clear (Clear); Urine Color Colorless (Yellow); Urine Protein, UAD Negative (Negative); Urine Specific Gravity 1.008 (1.001-1.035); Urine Squamous Epithelial Cell None Seen /hpf (<5); Urine Urobilinogen Normal (Negative); Urine WBC < 1 /HPF (0-3); Urine pH 7.5 (5.0-9.0)
[2025-01-26 05:16] LABS: Opiate Scree,Urine Neg (NEGATIVE)
[2025-01-26 05:20] LABS: Amphetamine Screen, Urine Neg (NEGATIVE); Barbiturate Scree,Urine Neg (NEGATIVE); Benzodiazephine Screen, Urine Neg (NEGATIVE); Cocaine Screen, Urine Neg (NEGATIVE); Phencyclidine Screen, Urine Neg (NEGATIVE)
[2025-01-26 05:21] LABS: Cannabinoid Screen, Urine Neg (NEGATIVE)
[2025-01-26] MEDS: PANTOPRAZOLE 40 MG/10 ML VIAL INJ IV SCH (09:11)
[2025-01-26] MEDS: amLODIPine BESYLATE 5 MG TAB PO SCH (09:12)
[2025-01-26] MEDS: predniSONE 20 MG TAB PO SCH (09:12)
[2025-01-26] MEDS: ALBUTEROL SULF 2.5 MG/0.5ML(0.5%) NEB SOLN NEB ONE (14:32)
[2025-01-26] MEDS: IPRATROPIUM BROM 0.5 MG/2.5ML INH SOL NEB ONE (14:32)
--- NOTE | 2025-01-26 15:42 | DVHPNRES ---
Progress Note Date Seen: Jan 26, 2025 Resident Creating Document: CANDE ZHONG RESIDENT Has the PT tested + for MRSA If YES, has PT been informed?: No Medical Necessity Reason Pt with a Central, PICC or Fol: No Subjective Review of Systems Mr. Jose, 69-year-old male with a medical history of atrial fibrillation (AFib), asthma, chronic obstructive pulmonary disease (COPD), dementia, tobacco use, and prior acute hypoxic respiratory failure presented via EMS with sudden- onset shortness of breath (SOB) that began earlier today without any clear trigger. His symptoms did not improve with his home Albuterol inhaler. EMS found him in respiratory distresstripoding and diaphoreticand administered a nebulized breathing treatment followed by CPAP, which led to improvement. He denied chest pain, cough, fever, chills, or other associated symptoms. Prehospital care included a 12-lead EKG, cardiac monitoring, and respiratory support. The severity of his condition was assessed as moderate. PCP Dr. Zee. Previous hospitalizations in 2023 with similar COPD exacerbation, was treated conservatively on discharged home with antibiotics and oral steroids. Past Medical History atrial fibrillation (AFib), asthma, chronic obstructive pulmonary disease (COPD), dementia, tobacco use, and prior acute hypoxic respiratory failure Past Surgical History: None Family History: None, Hypertension, Other (Noncontributory) Smoke: # pack years (50+ pack years) ALCOHOL: occassional Drugs: None Lives: with Family Domestic Violence: Neg 01/26/2025: today patient is on room air, sat 93%, bibasal ronchi, continue current managment Objective vital signs Vital Sign Date Time Temp Pulse Resp B/P (MAP) Pulse Ox O2 Delivery O2 Flow Rate FiO2 01/26/25 13:00 98.3 89 19 139/72 (94) 97 98.3 01/26/25 11:25 Room Air 0.0 01/26/25 11:25 21 Total Intake and Output 01/25/25 01/25/25 01/26/25 15:00 23:00 07:00 Intake Total 300 ml 500 ml Balance 300 ml 500 ml medications Current Medications Medications Dose Ordered Sig/Baltazar Route Start Time Stop Time Status Last Admin Dose Admin Ondansetron HCl 4 mg Q4HP PRN IV 01/25/25 21:30 Docusate Sodium 100 mg BIDPRN PRN PO 01/25/25 21:30 Acetaminophen 650 mg Q6HP PRN PO 01/25/25 21:30 Morphine Sulfate 2 mg Q4HPRN PRN IV 01/25/25 21:30 Nitroglycerin 0.4 mg Q5MINP PRN SL 01/25/25 21:30 Morphine Sulfate 2 mg Q30M PRN IV 01/25/25 21:30 Amlodipine Besylate 10 mg DAILY PO 01/26/25 10:00 01/26/25 09:12 10 MG Hydralazine HCl 10 mg Q6HP PRN IV 01/25/25 21:45 Levalbuterol HCl 1.25 mg Q6HWA NEB 01/25/25 21:45 01/26/25 11:25 1.25 MG Ipratropium [place] 0.5 mg Q6HWA NEB 01/25/25 21:45 01/26/25 11:25 0.5 MG Pantoprazole Sodium 40 mg DAILY IV 01/26/25 10:00 01/26/25 09:11 40 MG Enoxaparin Sodium 60 mg Q12HR SC 01/25/25 22:00 01/26/25 09:11 60 MG Prednisone 40 mg DAILY PO 01/26/25 10:00 01/26/25 09:12 40 MG Examination General Appearance: Alert, Oriented X3, Cooperative, No acute distress, moderate distress HEENT: Atraumatic, PERRLA, EOMI Respiratory: bibasal ronchi Cardiovascular: Regular rate, Normal S1, Normal S2, No murmurs Abdominal: Normal bowel sounds, Soft, No tenderness, No hepatospenomegaly, No masses Extremities: No clubbing, No cyanosis, No edema, Normal pulses, No tenderness/swelling Skin: No rashes, No breakdown, No significant lesion Neuro: Normal gait, Normal speech, Strength at 5/5 X4 ext, Normal tone, Sensation intact, Cranial nerves 3-12 NL, Reflexes 2+, Other Psych/Mental Status: Mental status NL, Mood NL laboratory and microbiology Laboratory Tests 01/26/25 03:56 Test 01/26/25 03:56 Range/Units Serum Glucose 200 H 74-106 mg/dL Problem List/Assessment/Plan Problem List/Assessment/Plan #COPD exacerbation #acute hypoxic respiratory failure likely due to above #Essential hypertension #Possible community-acquired pneumonia Gram-positive/Gram-negative #?Dementia #Atrial fibrillation #Active nicotine abuse Cardiac diet Levofloxacin PO Amlodipine PO Enoxaparin 60 mg BID Breathing treatments qh Protonix IV daily PCP: Dr. Zee Case discussed with Dr. Day Code Status: Full Code. Goals of care discussion needed total 33 minutes bedside. Plan discussed with: Patient, Other (rn) My Orders My Orders Orders - CANDE ZHONG Procedure Category Date Status Time Transfer Orders XFER 01/26/25 Transmitted 11:54 Discontinue Tele DONG 01/26/25 In Process 11:54 Date of Service: Jan 26, 2025 Billing Provider: DWAYNE DAY MD Common Visit Codes: [id number] INP/OBS CARE(HIGH) CANDE ZHONG RESIDENT Jan 26, 2025 15:42 DWAYNE DAY MD Jan 28, 2025 15:17
[2025-01-26] MEDS: levoFLOXacin 250 MG TAB PO SCH (18:10)
[2025-01-27] VITALS (11 sets, daily range): BP systolic 117–137; BP diastolic 58–82; PULSE 71–87; RESP 17–20; TEMP 97.3–98.8; O2SAT 92–100
[2025-01-27 01:49] LABS: COVID19 ANTIGEN SOFIA FIA NEGATIVE (NEGATIVE); Rapid Influenza A Negative (Negative); Rapid Influenza B Negative (Negative)
[2025-01-27] MEDS ORDERED: PRED20TA2 PO (10:26)
[2025-01-27] MEDS ORDERED: LEVO750T40 PO (10:26)
[2025-01-27] MEDS ORDERED: TIOT17SP IN (10:26)
--- NOTE | 2025-01-27 13:26 | ECG ---
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
--- NOTE | 2025-01-27 15:59 | DVHSR ---
APPROVED REPORT EXAM: Two-dimensional and M-mode echocardiogram with Doppler and color Doppler. Blood Pressure: 139/77 mmHg INDICATION Dyspnea R/O structural heart disease RISK FACTORS Height: 5'5", Weight: 126 DIMENSIONS LVDd4.0 (3.8-5.7cm)LA (2D)3.7 (1.9-4.0cm)Aortic Root (2.0-3.7cm) LVDs2.4 (2.5-4.0cm)LA (MM) (1.9-4.0cm)Aortic Cusp Exc (1.5-2.0cm) EF (%) 70.0 (55-70%)Rt. Atrium4.4 (1.9-4.0cm)Asc. Aorta cm IVSd1.0 (0.7-1.1cm)RV (D)4.6 (1.8-2.4cm) Mitral Valve MitralMitral Stenosis E wave0.48m/sMV Mean GR.mmHg A wave0.84m/sMV Peak GR.mmHg E/A ratio0.62D MVAcm2 DECEL [id number] 1/2 Tim[place] Aortic Valve Aortic ValveAortic Stenosis V10.92m/Micah Mean GR.2mmHg V21.03m/Micah Peak GR.4mmHg LVOT Diameter2.0 (1.8-2.4cm)Doppler AVA2.80cm2 Other Information Quality : Technically LimitedRhythm : Technically limited study due to body habitus. Conclusion LVEF 60-65%, mild LVH RV mildly dilated with normal function RA mildly dilated
--- NOTE | 2025-01-27 17:13 | DVHDSRES ---
Discharge Summary Date of Admission Resident Creating Document: CANDE ZHONG RESIDENT Jan 25, 2025 at 21:25 Date of Discharge: Jan 27, 2025 Admitting Diagnosis COPD exacerbation Labs/Diagnostic Data: Laboratory Results Test 01/27/25 01:00 01/26/25 04:45 01/26/25 03:56 01/25/25 22:22 Influenza Type A Antigen Negative (Negative) Influenza Type B Antigen Negative (Negative) SARS-CoV-2 Antigen (Rapid) Negative (NEGATIVE) Urine Color Colorless (Yellow) Urine Clarity Clear (Clear) Urine pH 7.5 (5.0-9.0) Urine Specific [place] 1.008 (1.001-1.035) Urine Protein Negative (Negative) Urine Ketones Negative (Negative) Urine Blood Negative /uL (Negative) Urine Nitrite Negative (Negative) Urine Bilirubin Negative (Negative) Urine Urobilinogen Normal mg/dL (Negative) Urine Leukocyte Esterase Negative /uL (Negative) Urine RBC None seen /hpf (0 - 3) Urine Microscopic WBC < 1 /HPF (0-3) Urine Squamous Epithelial Cells None seen /hpf (<5) Urine Bacteria None seen /hpf (None Seen) Urine Glucose 3+ mg/dL (Normal) Urine Opiates Screen Neg (NEGATIVE) Urine Fentanyl Screen Neg (NEGATIVE) Urine Barbiturates Screen Neg (NEGATIVE) Urine Phencyclidine Screen Neg (NEGATIVE) Urine Amphetamines Screen Neg (NEGATIVE) Urine Benzodiazepines Screen Neg (NEGATIVE) Urine Cocaine Screen Neg (NEGATIVE) Urine Cannabinoids Screen Neg (NEGATIVE) White Blood Count 8.1 10^3/uL (4.4-10.8) Red Blood Count 4.97 10^6/uL (4.5-5.90) Hemoglobin 12.9 g/dL (13.5-17.5) Hematocrit 39.7 % (41.0-53.0) Mean Corpuscular Volume 80.0 fL (80.0-100.0) Mean Corpuscular Hemoglobin 25.9 pg (28.0-32.0) Mean Corpuscular Hemoglobin Concent 32.4 g/dL (32.0-36.0) Red Cell Distribution Width 16.4 % (11.8-14.3) Platelet Count 301 10^3/uL (140-450) Mean Platelet Volume 7.9 fL (6.9-10.8) Neutrophils (%) (Auto) 92.8 % (37.0-80.0) Lymphocytes (%) (Auto) 6.4 % (10.0-50.0) Monocytes (%) (Auto) 0.4 % (0.0-12.0) Eosinophils (%) (Auto) 0.0 % (0.0-7.0) Basophils (%) (Auto) 0.4 % (0.0-2.0) Neutrophils # (Auto) 7.5 10 ^3/uL (1.6-8.6) Lymphocytes # (Auto) 0.5 10 ^3/uL (0.4-5.4) Monocytes # (Auto) 0 10 ^3/uL (0-1.3) Eosinophils # (Auto) 0 10 ^3/uL (0-0.8) Basophils # (Auto) 0 10 ^3/uL (0-0.2) Nucleated Red Blood Cells 0.1 % Sodium Level 144 mmol/L (136-145) Potassium Level 4.4 mmol/L (3.5-5.1) Chloride Level 109 mmol/L (98-107) Carbon Dioxide Level 26 mmol/L (20-31) Anion Gap 9 (5-15) Blood Urea Nitrogen 10 mg/dL (9-23) Creatinine 1.05 mg/dL (0.700-1.30) Glomerular Filtration Rate Calc 77 mL/min (>90) BUN/Creatinine Ratio 9.5 (10.0-20.0) Serum Glucose 200 mg/dL (74-106) Calcium Level 10.1 mg/dL (8.7-10.4) Total Bilirubin 0.4 mg/dL (0.2-1.0) Aspartate Amino Transferase (AST) 19 U/L (<34) Alanine Aminotransferase (ALT) 18 U/L (7-40) Alkaline Phosphatase 155 U/L (46-116) Total Protein 6.9 g/dL (5.7-8.2) Albumin 4.3 g/dL (3.2-4.8) Lactic Acid Level 1.1 mmol/L (0.4-2.0) Troponin I High Sensitivity 7 ng/L (</=54) Test 01/25/25 19:33 01/25/25 18:41 Blood Gas Specimen Type Arterial Blood Gas Sample Site Left radial Blood Gas Patient Temperature 37.0 Arterial Blood Date Drawn [id number] Arterial Blood pH 7.391 (7.350-7.450) Arterial Blood Partial Pressure CO2 42.2 mmHg (35.0-48.0) Arterial Blood Partial Pressure O2 109.3 mmHg (83.0-108.0) Arterial Blood HCO3 25.0 mmol/L (21.0-28.0) Arterial Blood Oxygen Saturation 98.1 % (94.0-98.0) Arterial Blood Base Excess 0.0 mmol/L (-2.0-3.0) Arterial Blood Oxyhemoglobin 96.7 % (94.0-98.0) Arterial Blood Carboxyhemoglobin 0.6 % (0.5-1.5) Arterial Blood Methemoglobin 0.8 % (0.0-1.5) Guille Test Modified Blood Gas Total Hemoglobin 12.70 g/dL (13.5-17.5) Blood Gas Set Respiration Rate 14.0 Blood Gas Modality Mask - bipap FiO2 % 35.0 Blood Gas EPAP 5 Blood Gas IPAP 14 Magnesium Level 2.0 mg/dL (1.6-2.6) Direct Bilirubin < 0.1 mg/dL (<0.3) B-Type Natriuretic Peptide 28.06 pg/mL (0-100) Thyroid Stimulating Hormone (TSH) 0.94 uIU/mL (0.55-4.78) Plasma/Serum Blood Alcohol < 3.0 mg/dL (<10) Other Laboratory Tests 01/26/25 03:56 Brief Hx & Hospital Course: A 69-year-old male with PMHx atrial fibrillation, asthma, COPD, dementia, essential hypertension, heavy tobacco use (>50 pack-years) and prior acute hypoxic respiratory failure was admitted on 2024 after EMS transport for sudden-onset dyspnea unrelieved by home albuterol. In the field he required nebulized bronchodilator therapy and brief CPAP, with partial symptom improvement. Initial exam revealed moderate respiratory distress with tripoding and diaphoresis; vitals notable for SpO2 88 % on ambient air that stewart to 95 % on CPAP, bibasilar rales, BP 168/92 mmHg, afebrile, and no chest pain. Baseline labs showed mild leukocytosis; CXR suggested hyperinflation with patchy infiltrates concerning for possible community-acquired pneumonia. Hospital Course: He received systemic steroids, scheduled nebulized bronchodilators, empiric levofloxacin, therapeutic enoxaparin 60 mg BID for Afib anticoagulation bridging, and amlodipine for BP control. No arrhythmic episodes or hemodynamic instability occurred. His oxygen requirement steadily decreased; by hospital day 3 he was on room air with SpO? 9394 % and improved breath sounds. Cognitive status remained at baseline dementia without delirium. Follow-Up & Instructions: Return to ED for worsening SOB, fever >38 C, chest pain, hemoptysis, or confusion. Schedule PCP visit within 1 week and pulmonology follow-up within 2 weeks. Encourage strict smoking cessation; resources provided. Continue home CPAP if available for nocturnal use. Resume usual activities as tolerated; initiate pulmonary rehabilitation exercises. Disposition: Home with family, ambulatory. Case discussed with Dr Day Operations or Procedures CHEST RADIOGRAPH Indication: sob Technique: Single frontal view of the chest was obtained Comparison: XY CHEST PORTABLE on DOS: 11/28/23 FINDINGS: Lines and Tubes: None Lungs: No focal consolidation. Pleura: No effusion. No pneumothorax. Cardiomediastinal contours: Unremarkable Bones: No acute osseous abnormality. IMPRESSION: 1. No acute cardiopulmonary disease. Condition at Discharge: Stable Final Diagnosis/Problems List #COPD exacerbation #acute hypoxic respiratory failure likely due to above #Essential hypertension #Possible community-acquired pneumonia Gram-positive/Gram-negative #?Dementia #Atrial fibrillation #Active nicotine abuse Discharge Disposition: Home Discharge Instruct/Medications Diet: Cardiac 2g Na,low cholest Activity: Light activity Follow Up/Referral: [facility] Medications: see prescription Discharge Statement: "Patient was advised to return to the ER or call 911 if any headaches, dizziness, shortness of breath, chest pain, abdominal pain, bleeding, fevers, or worsening of medical condition. Patient was counseled about treatment plan, medications, possible side effects, patientverbalized understanding. All questions were answered to the best of my ability. This discharge took greater then 30 minutes in planning, reviewing documentation, counseling the patient, and discussing with other team members." ASSESSMENT ASSESSMENT Assessment acute exacerbation of COPD CANDE ZHONG RESIDENT Jan 27, 2025 17:13
== END 2025-01-27 16:50 | disposition home or self-care (01) | DRG 189 ==
LOC: ER 18:28 → EDBD 18:28 → OVERFLOW 21:25 → TELE-CENTR 01-26 04:17 → CENTRAL 01-26 16:51
PROVIDERS: ADMIT Student in an Organized Health Care Education/Training Program; ATTEND Student in an Organized Health Care Education/Training Program
PROC: 5A09357 Assistance with Respiratory Ventilation, Less than 24 Consecutive Hours, Continuous Positive Airway Pressure (ICD-10-PCS; principal; 2025-01-25)
DX: J96.01 Acute respiratory failure with hypoxia (principal); J44.1 Chronic obstructive pulmonary disease with (acute) exacerbation; I48.91 Unspecified atrial fibrillation; Z20.822 Contact with and (suspected) exposure to COVID-19; I25.10 Atherosclerotic heart disease of native coronary artery without angina pectoris; D64.9 Anemia, unspecified; I10 Essential (primary) hypertension; F17.210 Nicotine dependence, cigarettes, uncomplicated; Z79.899 Other long term (current) drug therapy
CPT/HCPCS: 36415; 36600; 71045; 80048; 80053; 80076; 80307; 80320; 81001; 82805; 83605; 83735; 83880; 84443; 84484; 85025; 87040; 87426; 87804; 93005; 93306; 94640; 94660; 96365; 96372; 97110; 97116; 97163; 97530; G0378; J2470

== ENCOUNTER 2025-02-15 15:34 | Inpatient (IN) | payer OTHER, MEDICAID ==
[~2025-02-15] VITALS: Ht 172.7 cm; Wt 56.6 kg
[~2025-02-15 15:34] MED LIST changes: -AZIT500T66 PO; -DOXY100T2 PO; +LEVO750T40 PO; +TIOT17SP IN
[2025-02-15] MEDS: IPRATROPIUM BROM 0.5 MG/2.5ML INH SOL NEB ONE ×2 (16:20→22:26)
[2025-02-15] MEDS: ALBUTEROL SULF 2.5 MG/0.5ML(0.5%) NEB SOLN NEB ONE ×2 (16:20→22:26)
[2025-02-15 16:23] LABS: Hematocrit 40.2 % (41.0-53.0); Hemoglobin 12.9 g/dL (13.5-17.5); Mean Corpuscular Hemoglobin 25.9 pg (28.0-32.0); Mean Corpuscular Volume 80.4 fL (80.0-100.0); Nucleated Red Blood Cells % 0.2 %
--- NOTE | 2025-02-15 16:24 | ED.PDOC ---
SOB-HPI HPI Comments HPI: 69 y/o M, with PMHx of dementia, lung cancer, asthma, COPD, and AFib presents to the ED for CC of shortness of breath. EMS reports, patient is coming from home where he c/o shortness of breath onset, today (02/15/25). Per EMS, patient was given x1 breathing treatment in route; endorses improvement of symptoms. Patient denies cough, sore throat, chest pain, palpitations or fever. Initial Vitals BP: 136/83 HR: 99 RR: 16 O2: 97% on 3 L Temp: 98.5 F Past Medical History: DEMENTIA, COPD, AFIB, LUNG CANCER remote Past Surgical History: Social History: Denies ETOH, smoking, and drug use. Medications: Allergies: SHAZIA IRVING: CHF, COPD , 3L NC. [id number]. RECEIVED BREATHING TREATMENT THAT HOME AND BY AMBULANCE Patient is on Eliquis HPI: Poor Historian. Past Medical History: Past Surgical History: REVIEW OF SYSTEMS: CONSTITUTIONAL: Denies acute: fever, diaphoresis, chills, generalized weakness. HEAD: Denies acute: headache, photophobia Eyes: Denies acute: Double vision, vision loss, eye pain, eye discharge. EARS: Denies acute: tinnitus, hearing loss, ear discharge, ear pain, THROAT: Denies acute: sore throat, swelling, difficulty swallowing , pain with swallowing, change in voice. NECK: Denies acute: neck pain, neck swelling, stiff neck. HEART: Denies acute : chest pain, palpitations, LUNGS: Denies acute: , wheezing, cough, hemoptysis ABDOMEN: Denies acute: abdominal pain, Nausea, Vomiting, diarrhea, melena , hematemesis, hematochezia SKIN: Denies acute: rash, redness, lesions, itchiness. EXTREMITIES: Denies acute: calf pain, numbness, tingling, weakness, denies pain in extremity. Denies acute: Low back pain. Neuro: Denies acute: focal neurological deficit, motor or sensory focal neurological deficit, tremors, seizure like activity, confusion, dizziness, change in mental status, loss of bowel or bladder function, cauda equina like symptoms. : Denies acute: dysuria, hematuria, flank pain, increase in urinary frequency. PSYCH: Denies acute: hallucination, suicidal ideation, homicidal ideation. PHYSICAL EXAM: General: ----mild----acute distress, awake and alert. Head: normocephalic, atraumatic. Neck: supple, trachea is midline, no swelling. Throat: Normal phonation. Eyes:, no erythema, no purulent discharge, no proptosis, no icterus. Heart: regular rate, regular rhythm, no significant murmur appreciated. Lungs: no apparent respiratory distress, Able to speak in full sentences. No wheezing, no rhonchi, no crackles. No stridors Clear to auscultation bilaterally. Abdomen: non tender to palpation, non distended, soft, no guarding, no rebound, + bowel sounds. Neuro: Awake, Alert, oriented to name, self, situation, follows commands GCS=15. Speech is normal. Skin: no petechia, no purpura, no cyanosis, non-pale, not jaundice. Lower extremities: --trace bilateral- Pitting edema no deformity, no focal swelling, no calf TTP. Makes eye contact. moves all four extremities. Face: no apparent facial droop. ED COURSE: DISCLAIMER: This medical document was created using an electronic medical record system with voice recognition software and computerized dictation system. Although this document has been carefully reviewed, there might still be some phonetic and typographical errors. Occasional wrong-word or "sound-alike" substitutions may have occurred due to the inherent limitations of voice recognition software. These errors are purely typographical due to imperfections of the software programs and do not reflect any compromise in the patient's medical care. Please read the chart carefully and recognize, using context, where these substitutions have occurred. Time Seen by MD: 16:00 Primary Care Provider: NONE Reviewed notes: Nurses Notes, Rn Cardiovascular Notes, Medications, Allergies Information Source: Patient, Emergency Med Personnel Mode of Arrival: EMS Severity: Moderate Timing: Hours Duration: Since onset Context: At Rest PE Risk Factors: None History of: Asthma, COPD Prehospital treatment: None Modifying Factors: Nothing Associated Signs and Symptoms: None Was a procedure done? Was a procedure done?: No X-Ray, Labs, Meds, VS Vital Signs Date Time Temp Pulse Resp B/P (MAP) Pulse Ox O2 Delivery O2 Flow Rate FiO2 02/15/25 20:45 78 20 Nasal Cannula 2.0 02/15/25 20:44 80 16 82/ 99 02/15/25 20:43 125/82 02/15/25 16:00 98.5 99 16 136/83 (100) 97 98.5 02/15/25 16:00 16 97 Nasal Cannula* 3 32 02/15/25 15:43 94 Lab Test 02/15/25 19:01 02/15/25 17:09 02/15/25 16:07 02/15/25 04:00 Range/Units Magnesium Level 2.1 1.6-2.6 mg/dL Total Bilirubin 0.4 0.2-1.0 mg/dL Direct Bilirubin 0.1 <0.3 mg/dL Aspartate Amino Transferase (AST) 19 13-40 U/L Alanine Aminotransferase (ALT) 14 7-40 U/L Alkaline Phosphatase 134 H 46-116 U/L Troponin I High Sensitivity 3 L 3 L 4 </=54 ng/L Total Protein 6.7 5.7-8.2 g/dL Albumin 4.4 3.2-4.8 g/dL White Blood Count 9.6 4.4-10.8 10^3/uL Red Blood Count 5.00 4.5-5.90 10^6/uL Hemoglobin 12.9 L 13.5-17.5 g/dL Hematocrit 40.2 L 41.0-53.0 % Mean Corpuscular Volume 80.4 80.0-100.0 fL Mean Corpuscular Hemoglobin 25.9 L 28.0-32.0 pg Mean Corpuscular Hemoglobin Concent 32.2 32.0-36.0 g/dL Red Cell Distribution Width 17.3 H 11.8-14.3 % Platelet Count 256 140-450 10^3/uL Mean Platelet Volume 7.7 6.9-10.8 fL Neutrophils (%) (Auto) 74.6 37.0-80.0 % Lymphocytes (%) (Auto) 11.4 10.0-50.0 % Monocytes (%) (Auto) 7.6 0.0-12.0 % Eosinophils (%) (Auto) 5.9 0.0-7.0 % Basophils (%) (Auto) 0.5 0.0-2.0 % Neutrophils # (Auto) 7.1 1.6-8.6 10 ^3/uL Lymphocytes # (Auto) 1.1 0.4-5.4 10 ^3/uL Monocytes # (Auto) 0.7 0-1.3 10 ^3/uL Eosinophils # (Auto) 0.6 0-0.8 10 ^3/uL Basophils # (Auto) 0 0-0.2 10 ^3/uL Nucleated Red Blood Cells 0.2 % Sodium Level 146 H 136-145 mmol/L Potassium Level 4.2 3.5-5.1 mmol/L Chloride Level 110 H 98-107 mmol/L Carbon Dioxide Level 29 20-31 mmol/L Anion Gap 7 5-15 Blood Urea Nitrogen 10 9-23 mg/dL Creatinine 0.91 0.700-1.30 mg/dL Glomerular Filtration Rate Calc 92 >90 mL/min BUN/Creatinine Ratio 11.0 10.0-20.0 Serum Glucose 101 74-106 mg/dL Calcium Level 10.0 8.7-10.4 mg/dL B-Type Natriuretic Peptide 39.32 0-100 pg/mL Urine Opiates Screen Neg NEGATIVE Urine Fentanyl Screen Neg NEGATIVE Urine Barbiturates Screen Neg NEGATIVE Urine Phencyclidine Screen Neg NEGATIVE Urine Amphetamines Screen Neg NEGATIVE Urine Benzodiazepines Screen Neg NEGATIVE Urine Cocaine Screen Neg NEGATIVE Urine Cannabinoids Screen Neg NEGATIVE [place] [id number] Ph: [phone] DIAGNOSTIC IMAGING Diagnostic Imaging Report : [id number] Signed PATIENT: LUCIA IRVING RAYACCT: [id number] UNIT: [id number] : 1955 LOC: ER ROOM / BED: / AGE / SEX: 69 / M ADM STATUS: REG ER SERVICE [id number] ORDERING PHYSICIAN: MILLY NUÑEZ DO PROCEDURE(s): CXRP - CHEST PORTABLE REASON: sob ORDER NUMBER(s): [id number], ACCESSION NUMBER(s): [id number] INDICATION: sob TECHNIQUE: Frontal view of the chest. COMPARISON: XY CHEST XRAY 1 VIEW on DOS: 01/25/25, XY CHEST PORTABLE on DOS: 11/28/23 FINDINGS: Small right pleural effusion.. The heart and mediastinal contours are grossly unremarkable. . The lungs are clear. The bony structures of the chest are intact without fracture. IMPRESSION: 1. Small right pleural effusion. ATED BY: JEWEL MTZ MD DICTATED DATE/TIME: 02/15/251657 SIGNED BY: JEWEL MTZ MD SIGNED DATE/TIME: 02/15/251657 CC: Time of 1ST Reevaluation: 16:30 Reevaluation 1ST: Unchanged Patient Education/Counseling: Diagnosis, Treatment Family Education/Counseling: No Family Present Comments Patient presented with the above HPI.---respiratory---workup was initiated. p atient was found with the above mentioned diagnosis. the following medications were ordered: please refer to order lists of meds and tests obtained by myself Dr. Nuñez. Patient ED course and VS have been stabilized. Patient has been reassessed in t ED and remained in a stable condition. Patient has been observed in the ED adequate length of time to insure improvemen t/stability. Escalation of care considered: Consideration of escalation to observation or admission She was given DuoNeb treatment, steroids, Lasix. Patient was ADMITTED to the medicine team for further evaluation and treatment of their presentation. All the reports of any imaging studies that were ordered by myself were reviewed by myself. SEPSIS Sepsis Screen Physician Orders Electrocardigram (02/15/25 15:46) Cap Coverer (02/15/25 ) Chest Portable (02/15/25 15:55) Vital Signs Date Time Temp Pulse Resp B/P (MAP) Pulse Ox O2 Delivery O2 Flow Rate FiO2 02/15/25 20:45 78 20 Nasal Cannula 2.0 02/15/25 20:44 80 16 82/ 99 02/15/25 20:43 125/82 02/15/25 16:00 98.5 99 16 136/83 (100) 97 98.5 02/15/25 16:00 16 97 Nasal Cannula* 3 32 02/15/25 15:43 94 Laboratory Tests Test 02/15/25 16:07 White Blood Count 9.6 10^3/uL (4.4-10.8) Departure 1 Departure Time of Disposition: 17:55 Impression: Primary Impression: COPD exacerbation Additional Impression: Pleural effusion Disposition: ADMITTED INPATIENT Admit to: Tele Condition: Guarded Discharged With: Self Critical Care Note Critical Care Time?: Yes (45 min-critical care time only) Heart Score Heart Score: Heart Score Response (Comments) Value History N/A 0 EKG N/A 0 Age N/A 0 Risk Factors N/A 0 Troponin N/A 0 Total 0 I personally scribed for MILLY NUÑEZ DO ([email or web address]) on 02/15/25 at 16:24. Electronically submitted by Lulu Pepper ([email or web address]). I personally scribed for MILLY NUÑEZ DO ([email or web address]) on 02/15/25 at 18:00. Electronically submitted by Lulu Pepper ([email or web address]). I personally scribed for MILLY NUÑEZ DO ([email or web address]) on 02/15/25 at 23:49. Electronically submitted by Doc Phillip ([email or web address]). MILLY NUÑEZ DO Feb 15, 2025 16:24
[2025-02-15 16:30] LABS: Potassium 4.2 mmol/L (3.5-5.1)
[2025-02-15 16:31] LABS: Anion Gap 7 (5-15); Calcium 10.0 mg/dL (8.7-10.4); Carbon Dioxide 29 mmol/L (20-31)
[2025-02-15 16:36] LABS: BUN/Creatinine Ratio 11.0 (10.0-20.0); Blood Urea Nitrogen 10 mg/dL (9-23); Glucose 101 mg/dL (74-106)
--- NOTE | 2025-02-15 17:00 | DVH ---
INDICATION: sob TECHNIQUE: Frontal view of the chest. COMPARISON: XY CHEST XRAY 1 VIEW on DOS: 01/25/25, XY CHEST PORTABLE on DOS: 11/28/23 FINDINGS: Small right pleural effusion.. The heart and mediastinal contours are grossly unremarkable. . The ashley ngs are clear. The bony structures of the chest are intact without fracture. IMPRESSION: 1. Small right pleural effusion.
[2025-02-15 17:01] LABS: Chloride 110 mmol/L (98-107); Sodium 146 mmol/L (136-145)
--- NOTE | 2025-02-15 19:11 | ECG ---
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
[2025-02-15] MEDS: methylPREDNISolone SOD SUCC 125 MG/2 ML VL IV ONE (20:39)
[2025-02-15] MEDS: FUROSEMIDE 40 MG/4 ML VIAL IV ONE (20:43)
[2025-02-15] MEDS ORDERED: ACETAMINOPHEN 325 MG TAB PO PRN (22:00)
[2025-02-15 22:39] VITALS: BP 125/82; PULSE 80; RESP 16; O2SAT 96
[2025-02-15 22:57] LABS: Alanine Aminotransferase 14.0 U/L (7-40); Albumin 4.4 g/dL (3.2-4.8); Bilirubin, Direct 0.1 mg/dL (<0.3); Bilirubin, Total 0.4 mg/dL (0.2-1.0); Magnesium 2.1 mg/dL (1.6-2.6); Total Protein 6.7 g/dL (5.7-8.2)
[2025-02-15 23:04] LABS: Alkaline Phosphatase 134.0 U/L (46-116)
--- NOTE | 2025-02-15 23:49 | DVHHP2 ---
History of Present Illness History of Present Illness Patient is 69 years old male with past medical history of hypertension, COPD, atrial fibrillation, CA lung, asthma, dementia came with a complaint of shortness of breaths. As per patient he has been having shortness of breaths since morning even at rest, no relieving factor. Patient denied any chest pain, fever, palpitation, diarrhea, acute joint pain, jaundice. Initial lab workup negative for troponin I and BNP, chest x-ray small right pleural effusion. Echo on 01/26/25 revealed LVEF 60-65%, mildly dilated right atrium and right ventricle. Past Medical History hypertension, COPD, atrial fibrillation, CA lung, asthma, dementia Past Surgical History Lung surgery Past Social History Ex-smoker, Quit smoking 1 year before, > 50 pack per year, ex alcoholic, denies doing any drugs, lives with brother and his Review of Systems Review of Systems Allergy- NKDA Patient was seen today at the bedside. Cardiovascular- deny acute chest pain or cough or palpitation Gastrointestinal- denies any rectal bleeding, nausea or vomiting Musculoskeletal-denies acute joint swelling or tenderness or redness Neurological- denies acute dysarthria, dysphagia, change in vision Psychiatry- denies depression or SI or HI Skin- denies acute rash or purpura Allergies: Coded Allergies: NO KNOWN ALLERGIES (Unverified , 11/28/23) per patient Medications Current Medications Medications Dose Ordered Sig/Baltazar Route Start Time Stop Time Status Last Admin Dose Admin Acetaminophen 650 mg Q6HP PRN PO 02/15/25 22:00 Ceftriaxone Sodium 50 ml @ 100 mls/hr DAILY@2100 IV 02/16/25 21:00 Azithromycin 250 ml @ 125 mls/hr DAILY@2200 IV 02/16/25 22:00 Pantoprazole Sodium 40 mg DAILY@0600 PO 02/16/25 06:00 Methylprednisolone Sodium Succinate 40 mg BID IV 02/16/25 10:00 Albuterol 2.5 mg Q6HWA NEB 02/16/25 06:00 Ipratropium [place] 0.5 mg Q6HWA NEB 02/16/25 06:00 Nicotine 1 patch DAILY TD 02/16/25 10:00 Amlodipine Besylate 10 mg DAILY PO 02/16/25 10:00 Memantine 10 mg BID PO 02/16/25 10:00 Exam Vital Signs Vital Signs Date Time Temp Pulse Resp B/P (MAP) Pulse Ox O2 Delivery O2 Flow Rate FiO2 02/15/25 22:39 80 16 125/82 96 2.0 28 02/15/25 22:27 Nasal Cannula* 02/15/25 16:00 98.5 98.5 Exam General examination- awake, alert, oriented HEENT- PEERLA, no acute nasal discharge Cardiovascular- S1-S2 audible, rate and rhythm regular, no murmur Respiratory- bilateral lung wheezing++, crackles+ Gastrointestinal-nontender, bowel sound+. Nondistended Musculoskeletal-no acute joint swelling or tenderness or redness Lower extremity- bilateral leg edema++, left> right Neurological- cranial nerves intact, no acute dysarthria or dysphagia Psychiatry- denies depression or SI or HI Skin- no acute rash or purpura Labs/Xrays Labs Test 02/15/25 23:00 02/15/25 19:01 02/15/25 16:07 Range/Units Magnesium Level 2.1 1.6-2.6 mg/dL Total Bilirubin 0.4 0.2-1.0 mg/dL Direct Bilirubin 0.1 <0.3 mg/dL Aspartate Amino Transferase (AST) 19 13-40 U/L Alanine Aminotransferase (ALT) 14 7-40 U/L Alkaline Phosphatase 134 H 46-116 U/L Troponin I High Sensitivity 3 L </=54 ng/L Total Protein 6.7 5.7-8.2 g/dL Albumin 4.4 3.2-4.8 g/dL White Blood Count 9.6 4.4-10.8 10^3/uL Red Blood Count 5.00 4.5-5.90 10^6/uL Hemoglobin 12.9 L 13.5-17.5 g/dL Hematocrit 40.2 L 41.0-53.0 % Mean Corpuscular Volume 80.4 80.0-100.0 fL Mean Corpuscular Hemoglobin 25.9 L 28.0-32.0 pg Mean Corpuscular Hemoglobin Concent 32.2 32.0-36.0 g/dL Red Cell Distribution Width 17.3 H 11.8-14.3 % Platelet Count 256 140-450 10^3/uL Mean Platelet Volume 7.7 6.9-10.8 fL Neutrophils (%) (Auto) 74.6 37.0-80.0 % Lymphocytes (%) (Auto) 11.4 10.0-50.0 % Monocytes (%) (Auto) 7.6 0.0-12.0 % Eosinophils (%) (Auto) 5.9 0.0-7.0 % Basophils (%) (Auto) 0.5 0.0-2.0 % Neutrophils # (Auto) 7.1 1.6-8.6 10 ^3/uL Lymphocytes # (Auto) 1.1 0.4-5.4 10 ^3/uL Monocytes # (Auto) 0.7 0-1.3 10 ^3/uL Eosinophils # (Auto) 0.6 0-0.8 10 ^3/uL Basophils # (Auto) 0 0-0.2 10 ^3/uL Nucleated Red Blood Cells 0.2 % Sodium Level 146 H 136-145 mmol/L Potassium Level 4.2 3.5-5.1 mmol/L Chloride Level 110 H 98-107 mmol/L Carbon Dioxide Level 29 20-31 mmol/L Anion Gap 7 5-15 Blood Urea Nitrogen 10 9-23 mg/dL Creatinine 0.91 0.700-1.30 mg/dL Glomerular Filtration Rate Calc 92 >90 mL/min BUN/Creatinine Ratio 11.0 10.0-20.0 Serum Glucose 101 74-106 mg/dL Calcium Level 10.0 8.7-10.4 mg/dL B-Type Natriuretic Peptide 39.32 0-100 pg/mL Assessment/Plan Assessment/Plan Assessment and plan Acute hypoxic respiratory failure likely due to pneumonia/acute exacerbation of COPD -continue nebulization as prescribed Continue ceftriaxone and azithromycin as prescribed -continue methylprednisolone 40 mg IV b.i.d. -pending sputum culture, blood culture # acute pneumonia Gram-positive versus Gram-negative --continue nebulization as prescribed Continue ceftriaxone and azithromycin as prescribed -pending sputum culture, blood culture -pending echo 2D # bilateral leg edema, rule out DVT -pending Doppler study of the lower extremity to rule out DVT -pending echo 2D -continue Lasix 20 mg IV b.i.d. # acute exacerbation of COPD -continue nebulization as prescribed Continue ceftriaxone and azithromycin as prescribed -continue methylprednisolone 40 mg IV b.i.d. -pending sputum culture, blood culture # hypertension -continue amlodipine 10 mg p.o. daily # h/o atrial fibrillation -EKG sinus rhythm # dementia -continue memantine 10 mg p.o. daily Goals of care, Code status full code ; discussed with >15 minutes PUD prophylaxis: Pantoprazole DVT prophylaxis: Lovenox Plan discussed with Dr. Pittman , nursing staff, Total time spent on patient evaluation, chart review, assessment and plan, discussion discussion >35 minutes Plan discussed with: Patient, Other (RN) My Orders Orders - NIRAJ,ALLY RESIDENT Procedure Category Date Status Time Admit ADMIT 02/15/25 Transmitted 21:58 Code Status CODE 02/15/25 Transmitted 21:58 Complete Blood Count LAB 02/16/25 Verified 04:00 Comprehensive LAB 02/16/25 Verified Metabolic Panel 04:00 Cardiac DIET 02/16/25 Transmitted Diet-2gna,Lofat,Lochol Breakfast Acetaminophen Tablet PHA 02/15/25 In Process (Tylenol Tablet) 22:00 Notify Md Of Changes DONG 02/15/25 In Process From Base 21:58 Senior Process Analyst For DONG 02/15/25 In Process 24 Hours 21:58 Ceftriaxone 1gm/50ml PHA 02/16/25 In Process D5w (Rocephin) 21:00 Azithromycin 500mg/ PHA 02/16/25 In Process 250ml (Zithromax 50 22:00 Azithromycin 500mg/ PHA 02/15/25 In Process 250ml (Zithromax 50 22:15 Pantoprazole Tablet PHA 02/16/25 In Process (Protonix Tablet) 06:00 Methylprednisolone PHA 02/16/25 In Process Sod Succ (Solu Medrol 10:00 Albuterol Medneb PHA 02/16/25 In Process (Ventolin Medneb) 06:00 Ipratropium Medneb PHA 02/16/25 In Process (Atrovent Medneb) 06:00 Nicotine 21mg/24hr PHA 02/16/25 In Process (Nicoderm 21mg/24hr) 10:00 Amlodipine Tablet PHA 02/16/25 In Process (Norvasc Tablet) 10:00 Memantine Tablet PHA 02/16/25 In Process (Namenda Tablet) 10:00 Respiratory Culture GABRIELLE 02/15/25 Logged W/ Gs 22:06 Drug Screen LAB 02/15/25 Logged 22:08 Blood Alcohol LAB 02/15/25 In Process 22:08 Date of Service: Feb 14, 2025 Billing Provider: MARIAM PITTMAN MD Common Visit Codes: [id number] INP/OBS CARE (HIGH) Secondary Visit Codes: [id number] CARE PLAN 30 MINUTES ALLY HEALY RESIDENT Feb 15, 2025 23:49
[2025-02-16] VITALS (9 sets, daily range): BP systolic 127–136; BP diastolic 68–80; PULSE 71–91; RESP 12–18; TEMP 98.4–99.6; O2SAT 94–100
[2025-02-16] MEDS: cefTRIAXone 1GM/50ML D5W 50 ML IV ONE (00:02)
[2025-02-16] MEDS: PANTOPRAZOLE 40 MG TAB PO ONE (00:04)
[2025-02-16] MEDS: AZITHROMYCIN 500MG/ 250ML 250 ML IV ONE (01:33)
[2025-02-16] MEDS: FUROSEMIDE 20 MG/2 ML VIAL IV ONE (03:22)
[2025-02-16 03:42] LABS: Nucleated Red Blood Cells % 0.0 %
[2025-02-16 03:43] LABS: Hematocrit 42.3 % (41.0-53.0); Hemoglobin 13.8 g/dL (13.5-17.5); Mean Corpuscular Hemoglobin 26.1 pg (28.0-32.0); Mean Corpuscular Volume 79.9 fL (80.0-100.0)
[2025-02-16 03:54] LABS: Alanine Aminotransferase 16 U/L (7-40); Albumin 4.7 g/dL (3.2-4.8); Anion Gap 11 (5-15); BUN/Creatinine Ratio 10.3 (10.0-20.0); Bilirubin, Total 0.5 mg/dL (0.2-1.0); Blood Urea Nitrogen 12 mg/dL (9-23); Calcium 9.6 mg/dL (8.7-10.4); Carbon Dioxide 28 mmol/L (20-31); Chloride 103 mmol/L (98-107); Potassium 4.2 mmol/L (3.5-5.1); Sodium 142 mmol/L (136-145); Total Protein 7.3 g/dL (5.7-8.2)
[2025-02-16 03:58] LABS: Alkaline Phosphatase 155 U/L (46-116); Glucose 182 mg/dL (74-106)
[2025-02-16] MEDS: ENOXAPARIN SOD 40 MG/0.4 ML SYRINGE SC ONE (04:10)
[2025-02-16 04:58] LABS: Urine Protein, UAD Negative (Negative)
[2025-02-16 05:02] LABS: Barbiturate Scree,Urine Neg (NEGATIVE); Opiate Scree,Urine Neg (NEGATIVE); Phencyclidine Screen, Urine Neg (NEGATIVE)
[2025-02-16 05:03] LABS: Amphetamine Screen, Urine Neg (NEGATIVE); Benzodiazephine Screen, Urine Neg (NEGATIVE); Cannabinoid Screen, Urine Neg (NEGATIVE); Cocaine Screen, Urine Neg (NEGATIVE)
[2025-02-16] MEDS: PANTOPRAZOLE 40 MG TAB PO SCH (06:06)
[2025-02-16] MEDS: IPRATROPIUM BROM 0.5 MG/2.5ML INH SOL NEB SCH (06:30)
[2025-02-16] MEDS: ALBUTEROL SULF 2.5 MG/0.5ML(0.5%) NEB SOLN NEB SCH (06:30)
--- NOTE | 2025-02-16 08:14 | DVH ---
Bilateral lower extremity venous duplex Clinical History: Bilateral leg swelling Comparison: None Findings: Duplex Doppler evaluation of the deep venous systems of both lower extremities from the common femora l veins to the popliteal veins including color Doppler and spectral/pulsed waveform analysis was perf ormed. RIGHT SIDE: The common femoral vein demonstrates appropriate compressibility and waveform variability. There is compressibility/patency of the great saphenous vein at the proximal thigh. The femoral vein demonstrates appropriate compressibility and waveform variability. The deep femoral vein demonstrates appropriate compressibility and waveform variability. The popliteal vein demonstrates appropriate compressibility and waveform variability. There is normal compressibility at the tibioperoneal trunk. LEFT SIDE: The common femoral vein demonstrates appropriate compressibility but there is retrograde flow. There is compressibility/patency of the great saphenous vein at the proximal thigh. The femoral vein demonstrates appropriate compressibility and waveform variability. The deep femoral vein demonstrates appropriate compressibility and waveform variability. The popliteal vein demonstrates appropriate compressibility and waveform variability. There is echogenic material in the posterior tibial vein with absent flow on the color Doppler images . There is a shadowing echogenic structure in the region of the right inguinal canal. Can not exclude b owel containing inguinal hernia. Impression: 1. No deep venous thrombosis in the right lower extremity. 2. Deep vein thrombosis in the left posterior tibial vein. 3. Query left inguinal hernia containing bowel. A CT of the abdomen pelvis may be obtained for furthe r evaluation.
[2025-02-16 09:28] LABS: COVID19 ANTIGEN SOFIA FIA NEGATIVE (NEGATIVE)
[2025-02-16] MEDS ORDERED: MEMANTINE HCL 5 MG TAB PO SCH (10:00)
[2025-02-16] MEDS: NICOTINE 21MG/24 HR TOPICAL PATCH TD SCH (10:02)
[2025-02-16] MEDS: methylPREDNISolone SOD SUCC 40 MG/ML VL IV SCH (10:02)
[2025-02-16] MEDS: MEMANTINE HCL 5 MG TAB PO SCH (10:02)
--- NOTE | 2025-02-16 11:59 | DVHPN2 ---
Changes from previous H/P or p: No Changes Objective Vitals Vital Signs Date Time Temp Pulse Resp B/P (MAP) Pulse Ox O2 Delivery O2 Flow Rate FiO2 02/16/25 11:07 81 14 99 02/16/25 11:02 Nasal Cannula 1.0 02/16/25 11:02 24 02/16/25 10:02 127/68 02/16/25 07:42 98.3 98.3 Intake/Output Intake and Output 02/16/25 07:00 Intake Total 300 ml Balance 300 ml Intake IV Total 300 ml Medications Current Medications Medications Dose Ordered Sig/Baltazar Route Start Time Stop Time Status Last Admin Dose Admin Acetaminophen 650 mg Q6HP PRN PO 02/15/25 22:00 Ceftriaxone Sodium 50 ml @ 100 mls/hr DAILY@2100 IV 02/16/25 21:00 Azithromycin 250 ml @ 125 mls/hr DAILY@2200 IV 02/16/25 22:00 Pantoprazole Sodium 40 mg DAILY@0600 PO 02/16/25 06:00 02/16/25 06:06 40 MG Methylprednisolone Sodium Succinate 40 mg BID IV 02/16/25 10:00 02/16/25 10:02 40 MG Albuterol 2.5 mg Q6HWA NEB 02/16/25 06:00 02/16/25 11:01 2.5 MG Ipratropium [place] 0.5 mg Q6HWA NEB 02/16/25 06:00 02/16/25 11:01 0.5 MG Nicotine 1 patch DAILY TD 02/16/25 10:00 02/16/25 10:02 1 PATCH Amlodipine Besylate 10 mg DAILY PO 02/16/25 10:00 02/16/25 10:02 10 MG Memantine 10 mg DAILY PO 02/16/25 10:00 02/16/25 10:02 10 MG Furosemide 20 mg BIDD IV 02/16/25 18:00 Enoxaparin Sodium 40 mg Q24H SC 02/16/25 21:00 Laboratory Results Laboratory Tests 02/16/25 03:16 Chemistry Test 02/15/25 16:07 02/15/25 19:01 02/16/25 03:16 02/16/25 08:08 Calcium Level 10.0 mg/dL (8.7-10.4) 9.6 mg/dL (8.7-10.4) Albumin 4.4 g/dL (3.2-4.8) 4.7 g/dL (3.2-4.8) Magnesium Level 2.1 mg/dL (1.6-2.6) 2.2 mg/dL (1.6-2.6) Total Protein 6.7 g/dL (5.7-8.2) 7.3 g/dL (5.7-8.2) Cardiac Markers Test 02/15/25 16:07 B-Type Natriuretic Peptide 39.32 pg/mL (0-100) LFT Test 02/15/25 19:01 02/16/25 03:16 Alanine Aminotransferase (ALT) 14 U/L (7-40) 16 U/L (7-40) Alkaline Phosphatase 134 U/L (46-116) H 155 U/L (46-116) H Aspartate Amino Transferase (AST) 19 U/L (13-40) 16 U/L (13-40) Direct Bilirubin 0.1 mg/dL (<0.3) Total Bilirubin 0.4 mg/dL (0.2-1.0) 0.5 mg/dL (0.2-1.0) HgA1c, TSH Test 02/16/25 08:06 Hemoglobin A1c 5.9 % A1C (<5.7) H Thyroid Stimulating Hormone (TSH) 0.34 uIU/mL (0.55-4.78) L Urinalysis Test 02/16/25 04:00 Urine Color Colorless (Yellow) Urine Clarity Clear (Clear) Urine pH 5.0 (5.0-9.0) Urine Specific [place] 1.009 (1.001-1.035) Urine Protein Negative (Negative) Urine Ketones Negative (Negative) Urine Blood Negative /uL (Negative) Urine Nitrite Negative (Negative) Urine Bilirubin Negative (Negative) Urine Urobilinogen Normal mg/dL (Negative) Urine Leukocyte Esterase Negative /uL (Negative) Urine RBC None seen /hpf (0 - 3) Urine Microscopic WBC < 1 /HPF (0-3) Urine Squamous Epithelial Cells None seen /hpf (<5) Urine Bacteria None seen /hpf (None Seen) Urine Hyaline Casts Few /lpf (0 - 2) Urine Mucus Few (None Seen) Urine Glucose Normal mg/dL (Normal) Assessment/Plan Assessment/Plan Hypoxic respiratory failure Acute pneumonia Gram-positive versus Gram-negative Rocephin azithromycin Bilateral leg edema rule out DVT Acute COPD exacerbation Hypertension Atrial fibrillation Dementia History of right lower lobectomy for cancer lung History of Smoking more than 50 years quit one year ago Time Spent 70 minutes Advance care planning time 20 minutes Patient is full code Plan discussed with: Patient Date of Service: Feb 16, 2025 Billing Provider: COLEMAN MARQUEZ MD Common Visit Codes: [id number] CARE 30-74 MIN COLEMAN MARQUEZ MD Feb 16, 2025 11:59
[2025-02-16] MEDS: ENOXAPARIN SOD 80 MG/0.8ML SYRINGE SC SCH (14:04)
[2025-02-16] MEDS: cefTRIAXone 1GM/50ML D5W 50 ML IV SCH (20:44)
[2025-02-16] MEDS: FUROSEMIDE 20 MG/2 ML VIAL IV SCH (20:50)
[2025-02-16] MEDS ORDERED: ENOXAPARIN SOD 40 MG/0.4 ML SYRINGE SC SCH (21:00)
[2025-02-16] MEDS: AZITHROMYCIN 500MG/ 250ML 250 ML IV SCH (22:23)
[2025-02-17] VITALS (15 sets, daily range): BP systolic 110–137; BP diastolic 61–81; PULSE 72–98; RESP 16–20; TEMP 97.8–98.1; O2SAT 93–99
--- NOTE | 2025-02-17 10:25 | DVHPN2 ---
Reviewed: Care Plan, H&P, Labs, Medications, Previous Orders, Radiology Changes from previous H/P or p: No Changes Objective Vitals Vital Signs Date Time Temp Pulse Resp B/P (MAP) Pulse Ox O2 Delivery O2 Flow Rate FiO2 02/17/25 09:48 118/75 02/17/25 09:00 98.1 88 18 95 98.1 02/17/25 08:16 Room Air* 0 21 Intake/Output Intake and Output 02/17/25 07:00 Intake Total 1610 ml Balance 1610 ml Intake Oral 1310 ml IV Total 300 ml # Voids 3 Medications Current Medications Medications Dose Ordered Sig/Baltazar Route Start Time Stop Time Status Last Admin Dose Admin Acetaminophen 650 mg Q6HP PRN PO 02/15/25 22:00 Ceftriaxone Sodium 50 ml @ 100 mls/hr DAILY@2100 IV 02/16/25 21:00 02/16/25 20:44 100 MLS/HR Azithromycin 250 ml @ 125 mls/hr DAILY@2200 IV 02/16/25 22:00 02/16/25 22:23 125 MLS/HR Pantoprazole Sodium 40 mg DAILY@0600 PO 02/16/25 06:00 02/17/25 05:57 40 MG Methylprednisolone Sodium Succinate 40 mg BID IV 02/16/25 10:00 02/17/25 09:47 40 MG Albuterol 2.5 mg Q6HWA NEB 02/16/25 06:00 02/17/25 10:18 2.5 MG Ipratropium [place] 0.5 mg Q6HWA NEB 02/16/25 06:00 02/17/25 10:17 0.5 MG Nicotine 1 patch DAILY TD 02/16/25 10:00 02/17/25 09:48 1 PATCH Amlodipine Besylate 10 mg DAILY PO 02/16/25 10:00 02/17/25 09:48 10 MG Memantine 10 mg DAILY PO 02/16/25 10:00 02/17/25 09:47 10 MG Furosemide 20 mg BIDD IV 02/16/25 18:00 02/17/25 05:57 20 MG Enoxaparin Sodium 70 mg Q12HR SC 02/16/25 14:00 02/17/25 09:48 70 MG Laboratory Results Laboratory Tests 02/16/25 03:16 Urinalysis Test 02/16/25 04:00 Urine Color Colorless (Yellow) Urine Clarity Clear (Clear) Urine pH 5.0 (5.0-9.0) Urine Specific [place] 1.009 (1.001-1.035) Urine Protein Negative (Negative) Urine Ketones Negative (Negative) Urine Blood Negative /uL (Negative) Urine Nitrite Negative (Negative) Urine Bilirubin Negative (Negative) Urine Urobilinogen Normal mg/dL (Negative) Urine Leukocyte Esterase Negative /uL (Negative) Urine RBC None seen /hpf (0 - 3) Urine Microscopic WBC < 1 /HPF (0-3) Urine Squamous Epithelial Cells None seen /hpf (<5) Urine Bacteria None seen /hpf (None Seen) Urine Hyaline Casts Few /lpf (0 - 2) Urine Mucus Few (None Seen) Urine Glucose Normal mg/dL (Normal) Microbiology Microbiology Date/Time Source Procedure Growth Status 02/16/25 03:16 Blood Blood Culture - Preliminary NO GROWTH AFTER 24 HOURS OF INCUBATION. Resulted 02/16/25 03:05 Nose MRSA Screen - Final Complete Labs and/or images reviewed: Labs reviewed by me, Image(s) reviewed by me Assessment/Plan Assessment/Plan Acute Hypoxic respiratory failure Acute pneumonia Gram-positive versus Gram-negative Rocephin azithromycin DVT left lower extremity: Lovenox 1 milligram/kilos subQ b.i.d. Acute COPD exacerbation Hypertension Atrial fibrillation Dementia History of right lower lobectomy for cancer lung History of Smoking more than 50 years quit one year ago Time Spent 50 minutes Advance care planning time 20 minutes Patient is full code Plan discussed with: Patient My Orders Orders - COLEMAN MARQUEZ MD Procedure Category Date Status Time Enoxaparin Sodium PHA 02/16/25 In Process (Lovenox) 14:00 Date of Service: Feb 17, 2025 Billing Provider: COLEMAN MARQUEZ MD Common Visit Codes: [id number] INP/OBS CARE(HIGH) COLEMAN MARQUEZ MD Feb 17, 2025 10:25
[2025-02-17] MEDS: ALBUTEROL SULF 2.5 MG/0.5ML(0.5%) NEB SOLN NEB SCH (14:08)
[2025-02-17] MEDS: IPRATROPIUM BROM 0.5 MG/2.5ML INH SOL NEB SCH (14:08)
[2025-02-18] VITALS (13 sets, daily range): BP systolic 108–118; BP diastolic 62–81; PULSE 83–96; RESP 16–20; TEMP 36.1; O2SAT 94–99
[2025-02-18] MEDS ORDERED: DOXY100C79 PO (10:31)
[2025-02-18] MEDS ORDERED: PRED20TA2 PO (10:31)
[2025-02-18] MEDS ORDERED: ALBUAER3 IN (10:31)
--- NOTE | 2025-02-18 10:33 | DVHPN2 ---
Reviewed: Care Plan, H&P, Labs, Medications, Previous Orders, Radiology Changes from previous H/P or p: No Changes Objective Vitals Vital Signs Date Time Temp Pulse Resp B/P (MAP) Pulse Ox O2 Delivery O2 Flow Rate FiO2 02/18/25 09:00 96.9 91 18 111/68 (82) 96 96.9 02/18/25 07:45 Room Air* 0 21 Intake/Output Intake and Output 02/18/25 06:59 Intake Total 1490 ml Output Total 650 ml Balance 840 ml Intake Oral 1490 ml Output Urine Total 650 ml # Voids 9 # Bowel Movements 6 Medications Current Medications Medications Dose Ordered Sig/Baltazar Route Start Time Stop Time Status Last Admin Dose Admin Acetaminophen 650 mg Q6HP PRN PO 02/15/25 22:00 Ceftriaxone Sodium 50 ml @ 100 mls/hr DAILY@2100 IV 02/16/25 21:00 02/17/25 21:35 100 MLS/HR Azithromycin 250 ml @ 125 mls/hr DAILY@2200 IV 02/16/25 22:00 02/17/25 21:44 125 MLS/HR Pantoprazole Sodium 40 mg DAILY@0600 PO 02/16/25 06:00 02/18/25 06:13 40 MG Methylprednisolone Sodium Succinate 40 mg BID IV 02/16/25 10:00 02/17/25 21:35 40 MG Nicotine 1 patch DAILY TD 02/16/25 10:00 02/17/25 09:48 1 PATCH Amlodipine Besylate 10 mg DAILY PO 02/16/25 10:00 02/17/25 09:48 10 MG Memantine 10 mg DAILY PO 02/16/25 10:00 02/17/25 09:47 10 MG Furosemide 20 mg BIDD IV 02/16/25 18:00 02/18/25 06:13 20 MG Enoxaparin Sodium 70 mg Q12HR SC 02/16/25 14:00 02/17/25 21:44 70 MG Albuterol 2.5 mg Q4HWA NEB 02/17/25 14:00 02/18/25 07:43 2.5 MG Ipratropium [place] 0.5 mg Q4HWA NEB 02/17/25 14:00 02/18/25 07:44 0.5 MG Laboratory Results Laboratory Tests 02/16/25 03:16 Urinalysis Test 02/16/25 04:00 Urine Color Colorless (Yellow) Urine Clarity Clear (Clear) Urine pH 5.0 (5.0-9.0) Urine Specific [place] 1.009 (1.001-1.035) Urine Protein Negative (Negative) Urine Ketones Negative (Negative) Urine Blood Negative /uL (Negative) Urine Nitrite Negative (Negative) Urine Bilirubin Negative (Negative) Urine Urobilinogen Normal mg/dL (Negative) Urine Leukocyte Esterase Negative /uL (Negative) Urine RBC None seen /hpf (0 - 3) Urine Microscopic WBC < 1 /HPF (0-3) Urine Squamous Epithelial Cells None seen /hpf (<5) Urine Bacteria None seen /hpf (None Seen) Urine Hyaline Casts Few /lpf (0 - 2) Urine Mucus Few (None Seen) Urine Glucose Normal mg/dL (Normal) Microbiology Microbiology Date/Time Source Procedure Growth Status 02/16/25 03:16 Blood Blood Culture - Preliminary NO GROWTH AFTER 48 HOURS OF INCUBATION. Resulted 02/16/25 03:05 Nose MRSA Screen - Final Complete Labs and/or images reviewed: Labs reviewed by me, Image(s) reviewed by me Assessment/Plan Assessment/Plan Acute Hypoxic respiratory failure resolved, patient on room air at the time of discharge Acute pneumonia Gram-positive versus Gram-negative Rocephin azithromycin DVT left lower extremity: Lovenox 1 milligram/kilos subQ b.i.d. Acute COPD exacerbation Hypertension Atrial fibrillation Dementia History of right lower lobectomy for cancer lung History of Smoking more than 50 years quit one year ago Time Spent 50 minutes Advance care planning time 20 minutes Patient is full code Plan discussed with: Patient My Orders Orders - COLEMAN MARQUEZ MD Procedure Category Date Status Time Albuterol Medneb PHA 02/17/25 In Process (Ventolin Medneb) 14:00 Ipratropium Medneb PHA 02/17/25 In Process (Atrovent Medneb) 14:00 Date of Service: Feb 18, 2025 Billing Provider: COLEMAN MARQUEZ MD Common Visit Codes: [id number] INP/OBS CARE(HIGH) COLEMAN MARQUEZ MD Feb 18, 2025 10:32
--- NOTE | 2025-02-18 10:37 | DVHDS2 ---
Discharge Summary Date of Admission Feb 15, 2025 at 21:58 Date of Discharge: Feb 18, 2025 Admitting Diagnosis Shortness of breath Wounds: None Labs/Diagnostic Data: Laboratory Results Test 02/16/25 08:29 02/16/25 08:08 02/16/25 08:06 02/16/25 04:00 Influenza Type A Antigen Negative (Negative) Influenza Type B Antigen Negative (Negative) Magnesium Level 2.2 mg/dL (1.6-2.6) Hemoglobin A1c 5.9 % A1C (<5.7) Vitamin B12 Level 561 pg/mL (211-911) Vitamin D 25-Hydroxy 33.5 ng/mL (30.0-100) Folic Acid 13.60 ng/mL (>5.38) Thyroid Stimulating Hormone (TSH) 0.34 uIU/mL (0.55-4.78) Urine Color Colorless (Yellow) Urine Clarity Clear (Clear) Urine pH 5.0 (5.0-9.0) Urine Specific [place] 1.009 (1.001-1.035) Urine Protein Negative (Negative) Urine Ketones Negative (Negative) Urine Blood Negative /uL (Negative) Urine Nitrite Negative (Negative) Urine Bilirubin Negative (Negative) Urine Urobilinogen Normal mg/dL (Negative) Urine Leukocyte Esterase Negative /uL (Negative) Urine RBC None seen /hpf (0 - 3) Urine Microscopic WBC < 1 /HPF (0-3) Urine Squamous Epithelial Cells None seen /hpf (<5) Urine Bacteria None seen /hpf (None Seen) Urine Hyaline Casts Few /lpf (0 - 2) Urine Mucus Few (None Seen) Urine Glucose Normal mg/dL (Normal) Test 02/16/25 03:16 02/16/25 00:00 02/15/25 23:00 02/15/25 19:01 White Blood Count 10.3 10^3/uL (4.4-10.8) Red Blood Count 5.30 10^6/uL (4.5-5.90) Hemoglobin 13.8 g/dL (13.5-17.5) Hematocrit 42.3 % (41.0-53.0) Mean Corpuscular Volume 79.9 fL (80.0-100.0) Mean Corpuscular Hemoglobin 26.1 pg (28.0-32.0) Mean Corpuscular Hemoglobin Concent 32.7 g/dL (32.0-36.0) Red Cell Distribution Width 17.6 % (11.8-14.3) Platelet Count 263 10^3/uL (140-450) Mean Platelet Volume 7.8 fL (6.9-10.8) Neutrophils (%) (Auto) 95.0 % (37.0-80.0) Lymphocytes (%) (Auto) 3.8 % (10.0-50.0) Monocytes (%) (Auto) 0.8 % (0.0-12.0) Eosinophils (%) (Auto) 0.1 % (0.0-7.0) Basophils (%) (Auto) 0.3 % (0.0-2.0) Neutrophils # (Auto) 9.8 10 ^3/uL (1.6-8.6) Lymphocytes # (Auto) 0.4 10 ^3/uL (0.4-5.4) Monocytes # (Auto) 0.1 10 ^3/uL (0-1.3) Eosinophils # (Auto) 0 10 ^3/uL (0-0.8) Basophils # (Auto) 0 10 ^3/uL (0-0.2) Nucleated Red Blood Cells 0.0 % Sodium Level 142 mmol/L (136-145) Potassium Level 4.2 mmol/L (3.5-5.1) Chloride Level 103 mmol/L (98-107) Carbon Dioxide Level 28 mmol/L (20-31) Anion Gap 11 (5-15) Blood Urea Nitrogen 12 mg/dL (9-23) Creatinine 1.16 mg/dL (0.700-1.30) Glomerular Filtration Rate Calc 69 mL/min (>90) BUN/Creatinine Ratio 10.3 (10.0-20.0) Serum Glucose 182 mg/dL (74-106) Calcium Level 9.6 mg/dL (8.7-10.4) Total Bilirubin 0.5 mg/dL (0.2-1.0) Aspartate Amino Transferase (AST) 16 U/L (13-40) Alanine Aminotransferase (ALT) 16 U/L (7-40) Alkaline Phosphatase 155 U/L (46-116) Total Protein 7.3 g/dL (5.7-8.2) Albumin 4.7 g/dL (3.2-4.8) SARS-CoV-2 Antigen (Rapid) Negative (NEGATIVE) Plasma/Serum Blood Alcohol < 3.0 mg/dL (<10) Direct Bilirubin 0.1 mg/dL (<0.3) Troponin I High Sensitivity 3 ng/L (</=54) Test 02/15/25 16:07 02/15/25 04:00 B-Type Natriuretic Peptide 39.32 pg/mL (0-100) Urine Opiates Screen Neg (NEGATIVE) Urine Fentanyl Screen Neg (NEGATIVE) Urine Barbiturates Screen Neg (NEGATIVE) Urine Phencyclidine Screen Neg (NEGATIVE) Urine Amphetamines Screen Neg (NEGATIVE) Urine Benzodiazepines Screen Neg (NEGATIVE) Urine Cocaine Screen Neg (NEGATIVE) Urine Cannabinoids Screen Neg (NEGATIVE) Other Laboratory Tests 02/16/25 03:16 Brief Hx & Hospital Course: 69-year-old male with a history of hypertension atrial fibrillation dementia COPD chronic history of smoking for more than 50 years quit smoking one year ago came in for shortness of breaths. Found to have community-acquired pneumonia treated with Rocephin and azithromycin albuterol Atrovent Solu-Medrol patient has significantly improved and at the time of discharge on room air patient has a DVT of the left lower extremity already on Eliquis at home for AFib history of right lower lobectomy for cancer of the lung. We will continue Eliquis for AFib and left lower extremity DVT. Prescription for doxycycline Ventolin MDI and prednisone transmitted to pharmacy Consults/Reason for consult None Operations or Procedures None Condition at Discharge: Fair Final Diagnosis/Problems List Acute Hypoxic respiratory failure resolved, patient on room air at the time of discharge Acute pneumonia Gram-positive versus Gram-negative Rocephin azithromycin DVT left lower extremity: Lovenox 1 milligram/kilos subQ b.i.d. Acute COPD exacerbation Hypertension Atrial fibrillation Dementia History of right lower lobectomy for cancer lung History of Smoking more than 50 years quit one year ago Discharge Disposition: Home Discharge Instruct/Medications Diet: Cardiac 2g Na,low cholest Activity: Light activity Follow Up/Referral: Follow up with your primary Dr in one week Resume all previous home medications Medications: Doxycycline Ventolin MDI Prednisone tablets Transmitted to [facility]'s Scheduled Albuterol Sulfate (Ventolin Mdi), 90 MCG IN Q4HR Amlodipine Besylate (Amlodipine Besylate), 1 TAB PO DAILY, (Reported) Apixaban Base (Eliquis), 1 TAB PO BID, (Reported) Doxycycline (Monohydrate) (Doxycycline), 100 MG PO BID Menxzdfkvhx-Owfxfisseete-Oyocs (Trelegy Ellipta 100-62.5-25 Mcg/INH), 1 PUFF PO DAILY, (Reported) Levofloxacin Hemihydrate (Levaquin 500 Mg), 1 TAB PO DAILY, (Reported) Levofloxacin Hemihydrate (Levofloxacin), 750 MG PO DAILY Memantine Hydrochloride (Memantine HCl), 1 TAB PO BID, (Reported) Nicotine (Nicotine Transdermal Syst), 1 PATCH TOP DAILY, (Reported) Prednisone (Prednisone), 1 TAB PO BID, (Reported) Prednisone (Prednisone), 20 MG PO DAILY Prednisone (Prednisone), 40 MG PO DAILY Prednisone (Prednisone), 20 MG PO DAILY Tiotropium [place] Monohydrate (Spiriva Respimat), 2.5 MCG IN TID Scheduled PRN Pantoprazole Sodium Sesquihydr (Protonix), 40 MG PO DAILY PRN Miscellaneous Medications Albuterol Sulfate (Albuterol Sulfate Hfa), INH, (Reported) Methylprednisolone (Methylprednisolone Dose P), TAB PO, (Reported) 39 (Time taken for discharge summary 39 minutes) Discharge Statement: "Patient was advised to return to the ER or call 911 if any headaches, dizziness, shortness of breath, chest pain, abdominal pain, bleeding, fevers, or worsening of medical condition. Patient was counseled about treatment plan, medications, possible side effects, patientverbalized understanding. All questions were answered to the best of my ability. This discharge took greater then 30 minutes in planning, reviewing documentation, counseling the patient, and discussing with other team members." ASSESSMENT ASSESSMENT Hospital Course Improved Assessment Acute Hypoxic respiratory failure resolved, patient on room air at the time of discharge Acute pneumonia Gram-positive versus Gram-negative Rocephin azithromycin DVT left lower extremity: Lovenox 1 milligram/kilos subQ b.i.d. Acute COPD exacerbation Hypertension Atrial fibrillation Dementia History of right lower lobectomy for cancer lung History of Smoking more than 50 years quit one year ago Date of Service: Feb 18, 2025 Billing Provider: COLEMAN MARQUEZ MD Common Visit Codes: 27642-LEE/OBS DISCH DAY >30min COLEMAN MARQUEZ MD Feb 18, 2025 10:37
== END 2025-02-18 15:00 | disposition home or self-care (01) | DRG 299 ==
LOC: EDBD 15:34 → ER 15:38 → OVERFLOW 21:58 → TELE-EAST 02-16 17:06
PROVIDERS: ADMIT Family Medicine; ATTEND Family Medicine
DX: I82.402 Acute embolism and thrombosis of unspecified deep veins of left lower extremity (principal); J15.69 Pneumonia due to other Gram-negative bacteria; J96.01 Acute respiratory failure with hypoxia; J15.9 Unspecified bacterial pneumonia; J44.0 Chronic obstructive pulmonary disease with (acute) lower respiratory infection; J44.1 Chronic obstructive pulmonary disease with (acute) exacerbation; J90 Pleural effusion, not elsewhere classified; Z20.822 Contact with and (suspected) exposure to COVID-19; F03.90 Unspecified dementia, unspecified severity, without behavioral disturbance, psychotic disturbance, mood disturbance, and anxiety; I10 Essential (primary) hypertension; I48.91 Unspecified atrial fibrillation; Z79.01 Long term (current) use of anticoagulants; Z79.899 Other long term (current) drug therapy; Z85.118 Personal history of other malignant neoplasm of bronchus and lung; Z87.891 Personal history of nicotine dependence; Z90.2 Acquired absence of lung [part of]
CPT/HCPCS: 36415; 71045; 80048; 80053; 80076; 80307; 80320; 81001; 82306; 82607; 82746; 83036; 83735; 83880; 84443; 84484; 85025; 87040; 87070; 87081; 87205; 87426; 87804; 93005; 93970; 94640; 96374; 96375; G0378